=== PATIENT | female | born 1995 | race Caucasian/White ===

== ENCOUNTER 2018-05-27 01:49 | Inpatient (IN) ==
[2018-05-27] MEDS ORDERED: Ipratropium/Albuterol Neb 3 ML IH ONE ×2 (01:53→06:28)
[2018-05-27] MEDS ORDERED: Isovue-370 500 ML INFUS..BTL IV ONE (01:54)
--- NOTE | 2018-05-27 01:59 | Emergency Department Note ---
Disposition Clinical Impression: Acute septic pulmonary embolus Qualifiers: Acute cor pulmonale presence: without acute cor pulmonale Qualified Code(s): I26.90 - Septic pulmonary embolism without acute cor pulmonale Aspiration pneumonia Qualifiers: Aspiration pneumonia type: unspecified Laterality: bilateral Lung location: unspecified part of lung Qualified Code(s): J69.0 - Pneumonitis due to inhalation of food and vomit Anaphylaxis Qualifiers: Encounter type: initial encounter Qualified Code(s): T78.2XXA - Anaphylactic shock, unspecified, initial encounter Disposition: Admitted As Inpatient Condition: Serious Time of Disposition: 05:48 General Adult HPI - General Chief complaint: ED Shortness of Breath/Dyspnea Stated complaint: MAO Time Seen by Provider: 05/27/18 01:53 Nursing Notes Reviewed: Yes Vital Signs Reviewed: Yes - History of Present Illness HPI Narrative: Female patient presenting to emergency complaining of shortness of breath. She was found be hypoxic in triage. She was brought back to the trauma room. The patient is tachypneic on exam. She is placed on oxygen. This brought her oxygen saturation up to 99 200%. She denies any fevers or chills. She does report shortness of breath and left-sided chest pain. She does have a history of IV drug use. She recently shot up yesterday. States that she abuses opiates. She does have track wheeler to her bilateral before meals areas. There is ecchymosis to them. They do not appear to be grossly infected at this time. The patient's lung sounds are not course. She has some scant expiratory wheezing. She has full variation.. She does not appear hypoxic clinically. She appears to be perfusing well. Abdomen is soft nontender. Patient has strong pulses in all 4 extremities. We will get a CTA of patient's chest and a basic lab workup. We will also provide the patient with a DuoNeb at this time. She denies any medical history or any breathing troubles previously. She states this happened one other time approximately a week ago it lasted for an hour and resolved. - Related Data Allergies Allergy/AdvReac Type Severity Reaction Status Date / Time No Known Allergies Allergy Verified 05/27/18 01:50 All systems ED: reviewed and negative except as stated. Review of Systems: As Per HPI Constitutional: Denies: fever, chills ENT ED: Denies: congestion Cardiovascular: Denies: chest pain, palpitations, syncope Respiratory: Reports: cough, dyspnea Gastrointestinal: Denies: abdominal pain, nausea, vomiting, diarrhea Genitourinary: Denies: urgency, dysuria, frequency, hematuria Musculoskeletal: Denies: back pain, neck pain Integumentary: Denies: lesions Past Medical History - Past Medical History Attestation: Yes The following information was validated with the patient. Source: patient Physical Exam - General Limitations: other (Appears to be in respiratory distress) General appearance: alert, in distress (Respiratory) - Head Head exam: atraumatic, normocephalic, normal inspection - Eye Eye exam: Present: normal appearance, PERRL, EOMI - ENT ENT exam: normal exam, normal oropharynx, mucous membranes moist - Neck Neck exam: Present: normal inspection, full ROM, trachea midline - Chest Chest inspection: Present: normal inspection, symmetric chest wall rise - Respiratory Respiratory exam: Present: respiratory distress, accessory muscle use, other ( Scant wheezing. No rhonchi. Patient's tripoding. Using accessory muscles.) - Cardiovascular Cardiovascular exam: Present: normal rhythm, tachycardia - Abdominal Exam Abdominal exam: Present: soft, Non-Tender. Absent: tenderness, distention, guarding, rebound, rigidity - Extremities Exam Extremities exam: Present: normal inspection, full ROM, normal capillary refill. Absent: tenderness, pedal edema - Back Exam Back exam: Present: normal inspection, full ROM. Absent: tenderness - Neurological Exam Neurological exam: Present: alert, oriented X3 - Psychiatric Psychiatric exam: Present: normal affect, normal mood - Skin Skin exam: Present: warm, dry, intact, normal color, other (Track wheeler to the bilateral ACs and forearms as well as left brachial area) Course Course Narrative: CTA of patient's chest is concerning for possible septic emboli. We have started the patient on vancomycin and Zosyn. We will admit to the hospital for further evaluation. Patient is not febrile. Has been doing well on 2 L of oxygen. Oxygen saturation is been satting in the high 90s to 100%. Some appear to be in any distress. Vital Signs Temperature 98.3 F 05/27/18 01:51 Pulse Rate 121 05/27/18 01:51 Respiratory Rate 25 05/27/18 01:51 Blood Pressure 119/75 05/27/18 01:51 O2 Sat by Pulse Oximetry 77 08/29/18 01:51 Temperature 98.3 F 05/27/18 01:51 Pulse Rate 109 05/27/18 07:05 Respiratory Rate 30 05/27/18 07:05 Blood Pressure 122/77 05/27/18 07:05 O2 Sat by Pulse Oximetry 100 05/27/18 07:05 Oxygen Delivery Oxygen Delivery Nasal Cannula Medical Decision Making - Medical Records Medical records reviewed: Yes I reviewed the patient's medical records. - Lab Data Lab results reviewed: Yes I reviewed the patient's lab results. Result diagrams: 05/27/18 02:04 05/27/18 02:04 Lab Results 05/27/18 05/27/18 05/27/18 Range/Units 02:04 02:04 02:04 WBC 12.3 H (4.3-11.1) K/mcL RBC 5.26 H (3.82-4.97) M/mcL Hgb 15.5 H (11.5-15.4) g/dL Hct 47.0 H (35.3-44.9) % MCV 89.4 (83.0-100.0) fL MCH 29.5 (28.0-33.3) pg MCHC 33.0 (31.6-35.5) g/dL RDW 12.8 (11.5-14.5) % Plt Count 342 (140-400) K/mcL MPV 10.6 (9.4-12.4) fL Immature Gran % 0.4 (0-4) % Seg Neutrophils % 55.4 % Lymphocytes % 28.0 % Monocytes % 6.4 % Eosinophils % 9.5 % Basophils % 0.3 % Neutrophils # 6.8 (1.6-8.9) K/mcL Lymphocytes # 3.5 (0.6-4.6) K/mcL Monocytes # 0.8 (0.0-1.3) K/mcL Eosinophils # 1.2 H (0.0-0.6) K/mcL Basophils # 0.0 (0.0-0.2) K/mcL Sodium 139 (136-145) mEq/L Potassium 4.1 (3.5-5.1) mEq/L Chloride 104 (98-107) mEq/L Carbon Dioxide 29 (23-29) mEq/L BUN 11 (6-20) mg/dL Creatinine 0.89 (0.60-1.20) mg/dL Est GFR ( Amer) > 60 (> 60) Est GFR (Non-Af Amer) > 60 (> 60) BUN/Creatinine Ratio 12 (6-26) Glucose 104 (70-105) mg/dL Calculated Osmolality 288 (280-300) Lactic Acid 1.1 (0.5-2.2) mmol/L Calcium 9.4 (8.6-10.3) mg/dL Troponin I < 0.03 (< 0.04) ng/mL Urine Color (Yellow) Urine Clarity (Clear) Urine pH (5.0-8.0) pH Units Ur Specific [place] (1.010-1.025) Urine Protein (Neg-Trace) mg/dL Urine Glucose (UA) (Normal) mg/dL Urine Ketones (Negative) mg/dL Urine Blood (Negative) Urine Nitrite (Negative) Urine Bilirubin (Negative) Urine Urobilinogen (Normal) mg/dL Ur Leukocyte Esterase (Negative) Ur Culture Indicated? (NO) Urine Test (Negative) 05/27/18 05/27/18 Range/Units 05:29 05:29 WBC (4.3-11.1) K/mcL RBC (3.82-4.97) M/mcL Hgb (11.5-15.4) g/dL Hct (35.3-44.9) % MCV (83.0-100.0) fL MCH (28.0-33.3) pg MCHC (31.6-35.5) g/dL RDW (11.5-14.5) % Plt Count (140-400) K/mcL MPV (9.4-12.4) fL Immature Gran % (0-4) % Seg Neutrophils % % Lymphocytes % % Monocytes % % Eosinophils % % Basophils % % Neutrophils # (1.6-8.9) K/mcL Lymphocytes # (0.6-4.6) K/mcL Monocytes # (0.0-1.3) K/mcL Eosinophils # (0.0-0.6) K/mcL Basophils # (0.0-0.2) K/mcL Sodium (136-145) mEq/L Potassium (3.5-5.1) mEq/L Chloride (98-107) mEq/L Carbon Dioxide (23-29) mEq/L BUN (6-20) mg/dL Creatinine (0.60-1.20) mg/dL Est GFR ( Amer) (> 60) Est GFR (Non-Af Amer) (> 60) BUN/Creatinine Ratio (6-26) Glucose (70-105) mg/dL Calculated Osmolality (280-300) Lactic Acid (0.5-2.2) mmol/L Calcium (8.6-10.3) mg/dL Troponin I (< 0.04) ng/mL Urine Color Yellow (Yellow) Urine Clarity Clear (Clear) Urine pH 6.5 (5.0-8.0) pH Units Ur Specific [place] > 1.030 H (1.010-1.025) Urine Protein Negative (Neg-Trace) mg/dL Urine Glucose (UA) Normal (Normal) mg/dL Urine Ketones Negative (Negative) mg/dL Urine Blood Negative (Negative) Urine Nitrite Negative (Negative) Urine Bilirubin Negative (Negative) Urine Urobilinogen Normal (Normal) mg/dL Ur Leukocyte Esterase Negative (Negative) Ur Culture Indicated? NO (NO) Urine Test Negative (Negative) - Radiology Data Radiology results reviewed: Yes I reviewed the patient's radiology results. Chest CTA 05/27/18 01:55 IMPRESSION: Negative for acute pulmonary embolism. Diffuse airway inflammation which tracheobronchial secretions and multifocal ground-glass/consolidative opacities. Differential considerations would include aspiration sequela and septic embolic disease given patient's history of IV drug abuse. Although pulmonary infarcts can have a similar appearance, this is less favored. Right hilar lymphadenopathy, presumably reactive. Critical results were called by Dr. Gonzalo James to Melissa Salcedo on 05/27/2018 at 03:46. D/ / Gonzalo James / Gonzalo James Interpreting Provider: Gonzalo James
[2018-05-27] MEDS: 0.9 % Sodium Chloride 1,000 ML IVC ONE ×2 (02:06→06:42)
[2018-05-27 02:37] LABS: Basophils % 0.3 %; Eosinophils # 1.2 K/mcL (0.0-0.6); Eosinophils % 9.5 %; Hemoglobin 15.5 g/dL (11.5-15.4); Immature Granulocytes % 0.4 % (0-4); Lymphocytes # 3.5 K/mcL (0.6-4.6); Mean Corpuscular Hemoglobin 29.5 pg (28.0-33.3); Mean Corpuscular Volume 89.4 fL (83.0-100.0); Mean Platelet Volume 10.6 fL (9.4-12.4); Monocytes # 0.8 K/mcL (0.0-1.3); Monocytes % 6.4 %; Neutrophils # 6.8 K/mcL (1.6-8.9); Platelet Count 342 K/mcL (140-400); Red Blood Count 5.26 M/mcL (3.82-4.97); Red Cell Distribution Width 12.8 % (11.5-14.5); Segmented Neutrophils % 55.4 %
[2018-05-27 02:56] LABS: BUN/Creatinine Ratio 12 (6-26); Blood Urea Nitrogen 11 mg/dL (6-20); Calcium 9.4 mg/dL (8.6-10.3); Carbon Dioxide 29 mEq/L (23-29); Chloride 104 mEq/L (98-107); Glucose 104 mg/dL (70-105); Osmolality,Calculated 288 (280-300); Potassium 4.1 mEq/L (3.5-5.1); Sodium 139 mEq/L (136-145); Troponin I < 0.03 ng/mL (< 0.04); eGFR For Non-African Americans > 60 (> 60)
[2018-05-27] MEDS ORDERED: Piperacillin/Tazobactam 3.375 GM in Water for inj. (sterile) 20 ML 20 ML IVP ONE (04:17)
[2018-05-27 05:44] LABS: Bilirubin,Urine Negative (Negative); Blood,Urine Negative (Negative); Clarity,Urine Clear (Clear); Color,Urine Yellow (Yellow); Glucose,Urine (UA) Normal (Normal); Ketones,Urine Negative (Negative); Leukocyte Esterase,Urine Negative (Negative); Nitrite,Urine Negative (Negative); PH,Urine 6.5 pH Units (5.0-8.0); Protein,Urine Negative (Neg-Trace); Specific Gravity,Urine > 1.030 (1.010-1.025); Urobilinogen,Urine Normal (Normal)
[2018-05-27] MEDS ORDERED: *HR* EPINEPHrine 1 MG/10 ML SYRINGE ONE (06:07)
[2018-05-27] MEDS: *HR* EPINEPHrine 1 MG/ML AMPUL IM ONE ×2 (06:08→06:15)
[2018-05-27] MEDS ORDERED: methylPREDNISolone 125 MG/2 ML VIAL ONE (06:10)
[2018-05-27] MEDS ORDERED: *HR* EPINEPHrine 1 MG/ML AMPUL ONE ×2 (06:10→06:13)
[2018-05-27] MEDS ORDERED: Ipratropium/Albuterol Neb 3 ML ONE (06:10)
--- NOTE | 2018-05-27 06:17 | Emergency Department Note ---
Disposition Clinical Impression: Acute septic pulmonary embolus Qualifiers: Acute cor pulmonale presence: without acute cor pulmonale Qualified Code(s): I26.90 - Septic pulmonary embolism without acute cor pulmonale Aspiration pneumonia Qualifiers: Aspiration pneumonia type: unspecified Laterality: bilateral Lung location: unspecified part of lung Qualified Code(s): J69.0 - Pneumonitis due to inhalation of food and vomit Anaphylaxis Qualifiers: Encounter type: initial encounter Qualified Code(s): T78.2XXA - Anaphylactic shock, unspecified, initial encounter Disposition: Admitted As Inpatient Condition: Serious General Adult HPI - General Chief complaint: ED Shortness of Breath/Dyspnea Stated complaint: MAO Time Seen by Provider: 05/27/18 01:53 Source: patient Limitations: other (Appears to be in respiratory distress) Nursing Notes Reviewed: Yes Vital Signs Reviewed: Yes - History of Present Illness Pain Scale: 5 - Related Data Allergies Allergy/AdvReac Type Severity Reaction Status Date / Time No Known Allergies Allergy Verified 05/27/18 01:50 Constitutional: Denies: fever, chills ENT ED: Denies: congestion Cardiovascular: Denies: chest pain, palpitations, syncope Respiratory: Reports: cough, dyspnea Gastrointestinal: Denies: abdominal pain, nausea, vomiting, diarrhea Genitourinary: Denies: urgency, dysuria, frequency, hematuria Musculoskeletal: Denies: back pain, neck pain Integumentary: Denies: lesions Past Medical History - Past Medical History Medical history: Reports: no medical history Psychiatric history: Reports: no psych history - Social History Smoking Status: Current every day smoker Smokeless Tobacco Status: No Alcohol use: Reports: none Drug use: Reports: IV Drug Use Physical Exam - General Limitations: other (Appears to be in respiratory distress) General appearance: alert, in distress (Respiratory) Course Vital Signs Temperature 98.3 F 05/27/18 01:51 Pulse Rate 121 05/27/18 01:51 Respiratory Rate 25 05/27/18 01:51 Blood Pressure 119/75 05/27/18 01:51 O2 Sat by Pulse Oximetry 77 05/27/18 01:51 Temperature 98.3 F 05/27/18 01:51 Pulse Rate 109 05/27/18 07:05 Respiratory Rate 30 05/27/18 07:05 Blood Pressure 122/77 05/27/18 07:05 O2 Sat by Pulse Oximetry 100 05/27/18 07:05 Oxygen Delivery Oxygen Delivery Nasal Cannula Medical Decision Making - Lab Data Lab results reviewed: Yes I reviewed the patient's lab results. Result diagrams: 05/27/18 02:04 05/27/18 02:04 Lab Results 05/27/18 05/27/18 05/27/18 Range/Units 02:04 02:04 02:04 WBC 12.3 H (4.3-11.1) K/mcL RBC 5.26 H (3.82-4.97) M/mcL Hgb 15.5 H (11.5-15.4) g/dL Hct 47.0 H (35.3-44.9) % MCV 89.4 (83.0-100.0) fL MCH 29.5 (28.0-33.3) pg MCHC 33.0 (31.6-35.5) g/dL RDW 12.8 (11.5-14.5) % Plt Count 342 (140-400) K/mcL MPV 10.6 (9.4-12.4) fL Immature Gran % 0.4 (0-4) % Seg Neutrophils % 55.4 % Lymphocytes % 28.0 % Monocytes % 6.4 % Eosinophils % 9.5 % Basophils % 0.3 % Neutrophils # 6.8 (1.6-8.9) K/mcL Lymphocytes # 3.5 (0.6-4.6) K/mcL Monocytes # 0.8 (0.0-1.3) K/mcL Eosinophils # 1.2 H (0.0-0.6) K/mcL Basophils # 0.0 (0.0-0.2) K/mcL Sodium 139 (136-145) mEq/L Potassium 4.1 (3.5-5.1) mEq/L Chloride 104 (98-107) mEq/L Carbon Dioxide 29 (23-29) mEq/L BUN 11 (6-20) mg/dL Creatinine 0.89 (0.60-1.20) mg/dL Est GFR ( Amer) > 60 (> 60) Est GFR (Non-Af Amer) > 60 (> 60) BUN/Creatinine Ratio 12 (6-26) Glucose 104 (70-105) mg/dL Calculated Osmolality 288 (280-300) Lactic Acid 1.1 (0.5-2.2) mmol/L Calcium 9.4 (8.6-10.3) mg/dL Troponin I < 0.03 (< 0.04) ng/mL Urine Color (Yellow) Urine Clarity (Clear) Urine pH (5.0-8.0) pH Units Ur Specific [place] (1.010-1.025) Urine Protein (Neg-Trace) mg/dL Urine Glucose (UA) (Normal) mg/dL Urine Ketones (Negative) mg/dL Urine Blood (Negative) Urine Nitrite (Negative) Urine Bilirubin (Negative) Urine Urobilinogen (Normal) mg/dL Ur Leukocyte Esterase (Negative) Ur Culture Indicated? (NO) Urine Test (Negative) 05/27/18 05/27/18 Range/Units 05:29 05:29 WBC (4.3-11.1) K/mcL RBC (3.82-4.97) M/mcL Hgb (11.5-15.4) g/dL Hct (35.3-44.9) % MCV (83.0-100.0) fL MCH (28.0-33.3) pg MCHC (31.6-35.5) g/dL RDW (11.5-14.5) % Plt Count (140-400) K/mcL MPV (9.4-12.4) fL Immature Gran % (0-4) % Seg Neutrophils % % Lymphocytes % % Monocytes % % Eosinophils % % Basophils % % Neutrophils # (1.6-8.9) K/mcL Lymphocytes # (0.6-4.6) K/mcL Monocytes # (0.0-1.3) K/mcL Eosinophils # (0.0-0.6) K/mcL Basophils # (0.0-0.2) K/mcL Sodium (136-145) mEq/L Potassium (3.5-5.1) mEq/L Chloride (98-107) mEq/L Carbon Dioxide (23-29) mEq/L BUN (6-20) mg/dL Creatinine (0.60-1.20) mg/dL Est GFR ( Amer) (> 60) Est GFR (Non-Af Amer) (> 60) BUN/Creatinine Ratio (6-26) Glucose (70-105) mg/dL Calculated Osmolality (280-300) Lactic Acid (0.5-2.2) mmol/L Calcium (8.6-10.3) mg/dL Troponin I (< 0.04) ng/mL Urine Color Yellow (Yellow) Urine Clarity Clear (Clear) Urine pH 6.5 (5.0-8.0) pH Units Ur Specific [place] > 1.030 H (1.010-1.025) Urine Protein Negative (Neg-Trace) mg/dL Urine Glucose (UA) Normal (Normal) mg/dL Urine Ketones Negative (Negative) mg/dL Urine Blood Negative (Negative) Urine Nitrite Negative (Negative) Urine Bilirubin Negative (Negative) Urine Urobilinogen Normal (Normal) mg/dL Ur Leukocyte Esterase Negative (Negative) Ur Culture Indicated? NO (NO) Urine Test Negative (Negative) - Radiology Data Radiology results reviewed: Yes I reviewed the patient's radiology results. Chest CTA 05/27/18 01:55 IMPRESSION: Negative for acute pulmonary embolism. Diffuse airway inflammation which tracheobronchial secretions and multifocal ground-glass/consolidative opacities. Differential considerations would include aspiration sequela and septic embolic disease given patient's history of IV drug abuse. Although pulmonary infarcts can have a similar appearance, this is less favored. Right hilar lymphadenopathy, presumably reactive. Critical results were called by Dr. Gonzalo James to Melissa Salcedo on 05/27/2018 at 03:46. D/ / Gonzalo James / Gonzalo James Interpreting Provider: Gonzalo James - EKG Data EKG #1 EKG attestation: Yes I reviewed and interpreted this EKG. EKG results narrative: EKG shows a sinus tachycardia with ventricular rate of 105. No acute ST segment elevation or depression. No ectopy. Critical Care Time Critical Care Time: Yes Total Critical Care Time: 90 Attestation: Critical care performed: Time is exclusive of separately billable procedures. Time includes: direct patient care, patient reassessment, coordination of patient care, interpretation of data (laboratory data, radiology data, and respiratory data), review of patient's medical records, medical consultation and documentation of patient care. Procedures included in critical care time: Procedures excluded from critical care time: Attestation Statement - Attestation Attestation: I, Jair Edwards MD, personally evaluated this patient and discussed their management with the resident physician. I reviewed the resident's note and agree with the documented findings, medical decision making, and plan of care. 23-year-old female presented to the emergency department with a complaint of shortness of breath which started yesterday morning when she woke up and has gotten progressively worse throughout the day. Patient states she had a similar episode several days ago which lasted about an hour and resolved. She denies any chest pain. No cough or fever. No history of asthma or breathing problems. Patient does admit to IV drug use. On examination patient is a well-developed well-nourished young female in moderate respiratory distress. O2 saturation on presentation was 76% on room air. Breath sounds are decreased bilaterally with just a few faint scattered expiratory wheezes. Heart regular with a mild tachycardia. Abdomen soft and nontender with present bowel sounds. Labs reviewed. CTA consistent with early septic pulmonary emboli. Blood cultures obtained. IV antibiotics initiated. The hospitalist, Dr. Mendez, was consulted and accepted admission of the patient. Patient received IV Zosyn and then was started on IV vancomycin. After the vancomycin had been running for about an hour patient developed an anaphylactic reaction. She became short of breath with wheezing and itching and diffuse urticaria. She became pale and diaphoretic. She maintained her blood pressure and initially her oxygen saturation however she then did drop down to 84%. She was placed on nonrebreather mask. She received IM epinephrine 2 doses. IV Solu-Medrol, Pepcid, and Benadryl. She also received additional DuoNeb treatments. She was then placed on an epinephrine drip. She did have gradual improvement in her symptoms. Her color improved and mentation improved. Wheezing did improve but persisted. At shift change patient is signed out to Dr. Ray and Dr. Saenz. She has been ICU bed and will need a central line placement for the epinephrine drip prior to going to ICU.
[2018-05-27] MEDS ORDERED: 0.9 % Sodium Chloride 1,000 ML ONE ×2 (06:18→07:59)
[2018-05-27] MEDS ORDERED: methylPREDNISolone 125 MG/2 ML VIAL IVP ONE (06:25)
[2018-05-27] MEDS ORDERED: *HR* EPINEPHrine 1 MG/ML AMPUL IM ONE (06:28)
[2018-05-27] MEDS ORDERED: Famotidine 20 MG/2 ML VIAL IVP ONE (06:28)
[2018-05-27] MEDS ORDERED: EPINEPHrine 1 MG in D5% in Water 250 ML IVC SCH (06:30)
--- NOTE | 2018-05-27 07:55 | Emergency Department Note ---
Disposition Clinical Impression: Acute septic pulmonary embolus Qualifiers: Acute cor pulmonale presence: without acute cor pulmonale Qualified Code(s): I26.90 - Septic pulmonary embolism without acute cor pulmonale Aspiration pneumonia Qualifiers: Aspiration pneumonia type: unspecified Laterality: bilateral Lung location: unspecified part of lung Qualified Code(s): J69.0 - Pneumonitis due to inhalation of food and vomit Anaphylaxis Qualifiers: Encounter type: initial encounter Qualified Code(s): T78.2XXA - Anaphylactic shock, unspecified, initial encounter Disposition: Admitted As Inpatient Condition: Serious General Adult HPI - General Chief complaint: ED Shortness of Breath/Dyspnea Stated complaint: MAO Time Seen by Provider: 05/27/18 01:53 Source: patient Limitations: other (Appears to be in respiratory distress) Nursing Notes Reviewed: Yes Vital Signs Reviewed: Yes - History of Present Illness Pain Scale: 5 - Related Data Home Medications Medication Instructions Recorded Confirmed Unable To Obtain [Unable to Obtain] 05/27/18 05/27/18 Allergies Allergy/AdvReac Type Severity Reaction Status Date / Time No Known Allergies Allergy Verified 05/27/18 01:50 Constitutional: Denies: fever, chills ENT ED: Denies: congestion Cardiovascular: Denies: chest pain, palpitations, syncope Respiratory: Reports: cough, dyspnea Gastrointestinal: Denies: abdominal pain, nausea, vomiting, diarrhea Genitourinary: Denies: urgency, dysuria, frequency, hematuria Musculoskeletal: Denies: back pain, neck pain Integumentary: Denies: lesions Past Medical History - Past Medical History Medical history: Reports: no medical history Psychiatric history: Reports: no psych history - Social History Smoking Status: Current every day smoker Smokeless Tobacco Status: No Alcohol use: Reports: none Drug use: Reports: IV Drug Use Physical Exam - General Limitations: other (Appears to be in respiratory distress) General appearance: alert, in distress (Respiratory) Course Course Narrative: Patient was given in sign out by the night team. Upon my arrival patient was in the middle transitioning rooms due to undergoing respiratory distress secondary to reaction to vancomycin. In sign out stated that the patient has a history of IV drug use she has been having shortness of breath over the past 3 days she came into the emergency department for evaluation she is noted to have an oxygen saturation in the 70s. She started on 4 L nasal cannula which improved her symptoms she had a CTA of the chest done which was concerning for pneumonia versus granulomatous disease versus bronchitis versus septic emboli. She was started on IV vancomycin and Zosyn and blood cultures were obtained. Her lab work was unremarkable. Due to her respiratory distress, wheezing, hives and diffuse itching after receiving the vancomycin patient was moved to the trauma room where intubation and central line placement was considered due to the patient's declining respiratory status. However, after receiving a total of 1 mg of epi IM, Solu-Medrol, Benadryl and being placed on an epinephrine drip the patient's symptoms began to improve. She is now with oxygen saturation at 100% on room air. Her blood pressure remained stable at this time. The patient mentate's well. Plan is to take her off the epi drip and she will be admitted to the stepdown unit. She will be started on an alternate antibiotic. Vital Signs Temperature 98.3 F 05/27/18 01:51 Pulse Rate 121 05/27/18 01:51 Respiratory Rate 25 05/27/18 01:51 Blood Pressure 119/75 05/27/18 01:51 O2 Sat by Pulse Oximetry 77 05/27/18 01:51 Temperature 97.9 F 05/27/18 08:40 Pulse Rate 85 05/27/18 08:40 Respiratory Rate 22 05/27/18 08:48 Blood Pressure 118/71 05/27/18 08:48 O2 Sat by Pulse Oximetry 97 05/27/18 08:40 Oxygen Delivery Oxygen Delivery Nasal Cannula Medical Decision Making - Medical Records Medical records reviewed: Yes I reviewed the patient's medical records. - Lab Data Lab results reviewed: Yes I reviewed the patient's lab results. Result diagrams: 05/27/18 02:04 05/27/18 02:04 Lab Results 05/27/18 05/27/18 05/27/18 Range/Units 02:04 02:04 02:04 WBC 12.3 H (4.3-11.1) K/mcL RBC 5.26 H (3.82-4.97) M/mcL Hgb 15.5 H (11.5-15.4) g/dL Hct 47.0 H (35.3-44.9) % MCV 89.4 (83.0-100.0) fL MCH 29.5 (28.0-33.3) pg MCHC 33.0 (31.6-35.5) g/dL RDW 12.8 (11.5-14.5) % Plt Count 342 (140-400) K/mcL MPV 10.6 (9.4-12.4) fL Immature Gran % 0.4 (0-4) % Seg Neutrophils % 55.4 % Lymphocytes % 28.0 % Monocytes % 6.4 % Eosinophils % 9.5 % Basophils % 0.3 % Neutrophils # 6.8 (1.6-8.9) K/mcL Lymphocytes # 3.5 (0.6-4.6) K/mcL Monocytes # 0.8 (0.0-1.3) K/mcL Eosinophils # 1.2 H (0.0-0.6) K/mcL Basophils # 0.0 (0.0-0.2) K/mcL Sodium 139 (136-145) mEq/L Potassium 4.1 (3.5-5.1) mEq/L Chloride 104 (98-107) mEq/L Carbon Dioxide 29 (23-29) mEq/L BUN 11 (6-20) mg/dL Creatinine 0.89 (0.60-1.20) mg/dL Est GFR ( Amer) > 60 (> 60) Est GFR (Non-Af Amer) > 60 (> 60) BUN/Creatinine Ratio 12 (6-26) Glucose 104 (70-105) mg/dL POC Glucose (70-99) mg/dL Calculated Osmolality 288 (280-300) Lactic Acid 1.1 (0.5-2.2) mmol/L Calcium 9.4 (8.6-10.3) mg/dL Troponin I < 0.03 (< 0.04) ng/mL Urine Color (Yellow) Urine Clarity (Clear) Urine pH (5.0-8.0) pH Units Ur Specific [place] (1.010-1.025) Urine Protein (Neg-Trace) mg/dL Urine Glucose (UA) (Normal) mg/dL Urine Ketones (Negative) mg/dL Urine Blood (Negative) Urine Nitrite (Negative) Urine Bilirubin (Negative) Urine Urobilinogen (Normal) mg/dL Ur Leukocyte Esterase (Negative) Ur Culture Indicated? (NO) Urine Test (Negative) 05/27/18 05/27/18 05/27/18 Range/Units 05:29 05:29 08:50 WBC (4.3-11.1) K/mcL RBC (3.82-4.97) M/mcL Hgb (11.5-15.4) g/dL Hct (35.3-44.9) % MCV (83.0-100.0) fL MCH (28.0-33.3) pg MCHC (31.6-35.5) g/dL RDW (11.5-14.5) % Plt Count (140-400) K/mcL MPV (9.4-12.4) fL Immature Gran % (0-4) % Seg Neutrophils % % Lymphocytes % % Monocytes % % Eosinophils % % Basophils % % Neutrophils # (1.6-8.9) K/mcL Lymphocytes # (0.6-4.6) K/mcL Monocytes # (0.0-1.3) K/mcL Eosinophils # (0.0-0.6) K/mcL Basophils # (0.0-0.2) K/mcL Sodium (136-145) mEq/L Potassium (3.5-5.1) mEq/L Chloride (98-107) mEq/L Carbon Dioxide (23-29) mEq/L BUN (6-20) mg/dL Creatinine (0.60-1.20) mg/dL Est GFR ( Amer) (> 60) Est GFR (Non-Af Amer) (> 60) BUN/Creatinine Ratio (6-26) Glucose (70-105) mg/dL POC Glucose 180 H (70-99) mg/dL Calculated Osmolality (280-300) Lactic Acid (0.5-2.2) mmol/L Calcium (8.6-10.3) mg/dL Troponin I (< 0.04) ng/mL Urine Color Yellow (Yellow) Urine Clarity Clear (Clear) Urine pH 6.5 (5.0-8.0) pH Units Ur Specific [place] > 1.030 H (1.010-1.025) Urine Protein Negative (Neg-Trace) mg/dL Urine Glucose (UA) Normal (Normal) mg/dL Urine Ketones Negative (Negative) mg/dL Urine Blood Negative (Negative) Urine Nitrite Negative (Negative) Urine Bilirubin Negative (Negative) Urine Urobilinogen Normal (Normal) mg/dL Ur Leukocyte Esterase Negative (Negative) Ur Culture Indicated? NO (NO) Urine Test Negative (Negative) - Radiology Data Radiology results reviewed: Yes I reviewed the patient's radiology results. Chest CTA 05/27/18 01:55 IMPRESSION: Negative for acute pulmonary embolism. Diffuse airway inflammation which tracheobronchial secretions and multifocal ground-glass/consolidative opacities. Differential considerations would include aspiration sequela and septic embolic disease given patient's history of IV drug abuse. Although pulmonary infarcts can have a similar appearance, this is less favored. Right hilar lymphadenopathy, presumably reactive. Critical results were called by Dr. Gonzalo James to Melissa Salcedo on 05/27/2018 at 03:46. D/ / Gonzalo James / Gonzalo James Interpreting Provider: Gonzalo James S.B.A.R. - S.B.A.R. Transition of Care: Signed out to Dr. Ray and Dr. Saenz at 7:00. Situation: Demographics, MOA Background: Presenting Complaint, Relevant PMH, Meds, & Allergies Assessment: Vital Signs, Course and respsone to treatment, Exam Concerns, Patient/Family Expectation, Pertinant Lab Results Recommendation: Barrier(s) to disposition, Recommendation based on pending studies, treatments, or consults S.B.A.R. Report Given to: Dr. Saenz and Dr. Ray S.B.A.R. Repor Time: 07:00 Attestation Statement - Attestation Attestation: I, Juan Ray, examined this patient and my medical decision-making was reviewed with the DISPATCHER CHIEF [employer]URRY/PA/Advanced Practice Nurse/Resident Physician. I agree with the documented findings, disposition and treatment plan as described except to the extent set forth below. 23-year-old female received in sign out at and start of my shift pending reevaluation and disposition. Patient arrived emergency department short of breath and fatigued. She admitted to heroin and methamphetamine use over the past few days. Patient had difficulty in breathing and was diagnosed with likely septic emboli and started on antibiotics. She had received Zosyn without difficulty. She was then receiving vancomycin and about 40 minutes into her treatment she developed what apparently appeared to be urticaria, she had severe wheezing. They gave her epinephrine and Solu-Medrol in the emergency department. She was ultimately started on an epinephrine drip with eventual improvement of her symptoms. Upon my reevaluation she was mildly tachycardic however she did not have difficulty breathing. The epinephrine drip was removed and patient remained stable. She was admitted to the stepdown unit for further care and evaluation.
[2018-05-27] MEDS ORDERED: 0.9 % Sodium Chloride 1,000 ML IVC ONE (08:15)
[2018-05-27] MEDS ORDERED: Acetaminophen 325 MG TABLET PO PRN (09:16)
[2018-05-27] MEDS ORDERED: Naloxone 0.4 MG/ML INJ IVP PRN (09:16)
[2018-05-27] MEDS ORDERED: Albuterol 2.5 MG/3 ML NEBULIZER IH PRN (09:42)
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
--- NOTE | 2018-05-27 11:47 | Pulmonology Consult Note ---
<Moni Flores E - Last Filed: 05/27/18 14:19> Date of Encounter: 05/27/18 Time of Encounter: 11:45 Assessment and Plan (1) Pneumonia Current Visit: Yes Status: Acute CT angiogram showed no pulmonary embolism, showed bilateral multifocal opacities and tracheobronchial secretions, consistent with aspiration versus septic emboli. Supportive care Supplemental oxygen IV fluids Blood cultures have been sent IV Zosyn and linezolid Urine for Legionella and strep pneumonia antigen, MRSA nasal screen Qualifiers: Pneumonia type: due to unspecified organism Laterality: bilateral Lung location: unspecified part of lung Qualified Code(s): J18.9 - Pneumonia, unspecified organism (2) Septic embolism Current Visit: Yes Status: Acute History of IV drug abuse Follow-up blood cultures and check TTE Continue IV antibiotics (3) Sepsis Current Visit: Yes Status: Suspected Suspected due to pneumonia Plan as above Qualifiers: Sepsis type: sepsis due to unspecified organism Qualified Code(s): A41.9 - Sepsis, unspecified organism (4) Acute encephalopathy Current Visit: Yes Status: Acute Patient was told to be awaken in the ICU. She answered a few questions and fell back asleep. This was likely toxic/metabolic due to drug use, or sepsis. Monitor closely (5) IV drug abuse Current Visit: Yes Status: Chronic History of IV drug use with heroin Methamphetamine use Supportive care Closely monitor (6) Anaphylaxis Current Visit: Yes Status: Acute Continue to IV vancomycin in the ED was given IM epinephrine, IV Benadryl, Solu- Medrol improvement The supportive care with close monitoring Qualifiers: Encounter type: initial encounter Qualified Code(s): T78.2XXA - Anaphylactic shock, unspecified, initial encounter History of Present Illness Consult date: 05/27/18 Requesting physician: Louann Boone Chief complaint: Chest pain, dyspnea with Meth and IVDH, with B/L septic emboli on CT History of present illness: Ms. Prieto is a 23-year-old female with a history of IV drug abuse and methamphetamine use. She presented to the ED with complaints of shortness of breath. Yesterday she started developing shortness of breath that was worse on exertion. She had some mild chest pain radiated to her back. She denied any palpitations dizziness or syncope. She had a dry cough for the last few days. She did not notice any fevers, chills, vomiting, diarrhea, or abdominal pain. IV heroin last use was 1 week ago, methamphetamine yesterday. Is treated in the ED with vancomycin as a drug reaction with significant wheezing, lethargy, diffuse rash she received treatment with IV Benadryl. Exam patient was very drowsy easily awoken. Past Med Surg Social Fam HX - Past Medical History Medical history: no medical history Psychiatric history: no psych history - Past Surgical History Surgical History: no surgical history - Social History Smoking Status: Current every day smoker Packs per day: 1 Smokeless Tobacco Status: No Alcohol use: none Drug use: methamphetamine, IV Drug Use - Family History Mother Hx Family Cancer: Yes Medications and Allergies Unable To Obtain [Unable to Obtain] 05/27/18 [History] 3 Allergy/AdvReac Type Severity Reaction Status Date / Time No Known Allergies Allergy Verified 05/27/18 01:50 All Systems: The remainder of the systems were reviewed and are negative - Constitutional Constitutional: no chills, no fever(s), no headache(s) - Cardiovascular Cardiovascular: chest pain, radiating pain (To the back), no irregular heart rhythm - Respiratory Respiratory: cough, dyspnea, dyspnea on exertion - Gastrointestinal Gastrointestinal: no abdominal pain, no cramping, no diarrhea Physical Examination General appearance: no acute distress Eyes: nonicteric ENT: oropharynx moist Effort: normal Auscultation: bilateral: wheezes (Bilateral all lung lobes) Cardiovascular: regular rate and rhythm Gastrointestinal: normoactive bowel sounds, non-tender, non-distended Integumentary: other (And lines noticed on both arms the patient. She also has a brown patch on her right lower leg she has is scar) Extremities: no cyanosis, no edema, pink and warm mood appropriate Results - Laboratory Findings CBC and BMP: 05/27/18 02:04 05/27/18 02:04 Abnormal lab findings: Abnormal lab results WBC 12.3 K/mcL (4.3-11.1) H 05/27/18 02:04 RBC 5.26 M/mcL (3.82-4.97) H 05/27/18 02:04 Hgb 15.5 g/dL (11.5-15.4) H 05/27/18 02:04 Hct 47.0 % (35.3-44.9) H 05/27/18 02:04 Eosinophils # 1.2 K/mcL (0.0-0.6) H 05/27/18 02:04 POC Glucose 180 mg/dL (70-99) H 05/27/18 08:50 Ur Specific [place] > 1.030 (1.010-1.025) H 05/27/18 05:29 Consult Discharge Plan - Plan Referrals: NONE,PCP [Primary Care Provider] - Azam Henderson MD [Family Provider] - <Abilio Reynaga M - Last Filed: 05/27/18 17:16> Date of Encounter: 05/27/18 All Systems: The remainder of the systems were reviewed and are negative Results - Laboratory Findings CBC and BMP: 05/27/18 02:04 05/27/18 02:04 Abnormal lab findings: Abnormal lab results WBC 12.3 K/mcL (4.3-11.1) H 05/27/18 02:04 RBC 5.26 M/mcL (3.82-4.97) H 05/27/18 02:04 Hgb 15.5 g/dL (11.5-15.4) H 05/27/18 02:04 Hct 47.0 % (35.3-44.9) H 05/27/18 02:04 Eosinophils # 1.2 K/mcL (0.0-0.6) H 05/27/18 02:04 POC Glucose 180 mg/dL (70-99) H 05/27/18 08:50 Ur Specific [place] > 1.030 (1.010-1.025) H 05/27/18 05:29 - Microbiology Findings Microbiology Findings: Microbiology, Last 48 Hours 05/27/18 11:13 Blood Culture - Preliminary Peripheral Venipuncture Culture is incubating and being continuously monitored for growth. Final report to follow. 05/27/18 11:10 Blood Culture - Preliminary Peripheral Venipuncture Culture is incubating and being continuously monitored for growth. Final report to follow. - Attending Attestation I examined this patient and my medical decision-making was reviewed with the Resident Physician. I agree with the documented findings, disposition and treatment plan as described except to the extent set forth below. Patient seen and examined. Labs, radiology, chart personally reviewed. Agree with resident's history and physical, assessment, plan with following comments: [employer]: Patient follows commands, Pulmonary: Acceptable oxygenation and ventilation. Reviewed CT chest personally and she will be treated for pneumonia. Patient reaction to vancomycin and infectious disease consultation for further help. Cardiovascular: stable . Patient may need WENDIE to make sure there is no agitation. GI: Nutrition per dietary and GI prophylaxis per routine Heme: DVT prophylaxis per routine ID: Continue antibiotics and plan to de-escalation Renal; urine out put and renal funtion reviewed Endorcine: blood glucose is monitored Lines: all lines checked and no evidence of infections Skin: skin care to prevent pressure ulcers per nursing routine care Patient needs close monitoring after she had reaction to vancomycin.
[2018-05-27] MEDS: Ringers Solution, Lactated 1,000 ML IVC SCH ×2 (13:33→23:45)
--- NOTE | 2018-05-27 16:03 | Infectious Disease Consult ---
Date of Encounter: 05/27/18 Time of Encounter: 15:56 Assessment and Plan (1) Sepsis Status: Acute Assessment and plan: The patient had three SIRS criteria on admission. Likely secondary to multifocal pneumonia vs. septic emboli vs. other. Improved clinically. Blood cultures drawn 05/27/18 x 2 sets are pending. Qualifiers: Sepsis type: sepsis due to unspecified organism Qualified Code(s): A41.9 - Sepsis, unspecified organism (2) Pneumonia Status: Suspected Assessment and plan: Location: Multifocal. Causative organism unclear. Concern for aspiration based on CT scan findings, but the patient denies any loss of consciousness related to her IV drug use. CTA of the chest was negative for PE, but did show diffuse airway inflammation with tracheobronchial secretions and multifocal ground-glass opacities/ consolidative opacities. Differential considerations include aspiration vs. septic emboli vs. pulmonary infarcts (less likely). Check S. pneumo and Legionella UATs. Check MRSA nasal screen. Check RIP. Get an additional set of blood cultures now. Continue Zyvox 600mg IV BID for now. If MRSA screen is negative, discontinue. Continue Zosyn 3.375 grams IV Q8H. Duration of treatment depends on the clinical picture. Monitor renal function and for drug toxicity and dose-adjust antibiotics. Qualifiers: Pneumonia type: due to unspecified organism Laterality: bilateral Lung location: unspecified part of lung Qualified Code(s): J18.9 - Pneumonia, unspecified organism (3) Septic embolism Status: Suspected Assessment and plan: Suspected. Await blood culture results. Continue antibiotics as above. (4) Anaphylaxis Status: Acute Assessment and plan: Concern for reaction to Vancomycin. Appears resolved. Qualifiers: Encounter type: initial encounter Qualified Code(s): T78.2XXA - Anaphylactic shock, unspecified, initial encounter (5) IV drug abuse Status: Chronic Assessment and plan: Reports IV heroine use 1 week ago and IV meth use 2 days ago. Denies history of chronic infectious diseases. Check HIV status. Check Hepatitis profile. Infectious Disease HPI - Data of Consult Patient: new to practice Consult date: 05/27/18 Requesting Physician: Armando Mendez MD Primary Care Provider: PCP NONE Family Provider: Azam Henderson MD - Consult Narrative Reason for consult: Possible endocarditis, reaction to Vanc History of present illness: Ms. Prieto is a 23 year old female with past medical history of IV drug use. The patient was admitted to the hospital May 27 for anaphylaxis and septic emboli. We will consult in May 27 further recommendations for possible endocarditis and IV vancomycin reaction. Briefly, the patient is a 23-year-old female with past medical history as stated above. The patient presented to the emergency department on the day of admission with complaints of acute onset of shortness of breath and some left- sided chest pain. Upon arrival, the patient was afebrile. She was tachycardic and tachypneic and had leukocytosis with neutrophilic predominance. Her kidney function was normal. Urinalysis was negative. Troponin was negative 2. Blood cultures were obtained 2 sets and are pending. She was CTA of the chest that was negative for acute pulmonary embolism, but did show diffuse airway inflammation with tracheobronchial secretions and multifocal groundglass/ consolidative opacities. The differential considerations would include aspiration sequelae and septic emboli given the patient's history of IV drug use. Although pulmonary infarcts can have a similar period, this is less favored. There was also noted to be a right hilar lymphadenopathy, presumably reactive. The patient was started empirically on Zosyn and tolerated it well. She then received IV vancomycin and about an hour after the initiation of the infusion she developed worsening shortness of breath, rash, hives, urticaria, hypotension. She received Pepcid, Benadryl, sliding Medrol, and epinephrine and her symptoms improved. She was initially started on epinephrine drip, but that was discontinued. She was transitioned to IV Zosyn and Zyvox and admitted to the hospital for further evaluation. Since admission, the patient is undergone a transthoracic echocardiogram that showed an EF of 65%, but there is inadequate bowel visualization so a WENDIE was recommended if there was a clinical suspicion for endocarditis. Urinary antigen tests have been ordered but not collected. MRSA nasal screen has been ordered but not collected. Currently, the patient is on IV Zosyn and Zyvox. We have been asked to evaluate and make further recommendations. During my exam today, the patient endorses a history as stated above. She reports a one-day history of acute onset shortness of breath and some left- sided chest pain. She denies any known fevers or chills or rigors. She denies any headache or neck pain. She does report chronic nasal congestion and states she has been sneezing a lot lately. She denies any sore throat or ear pain. She denies a cough. She denies nausea or vomiting or diarrhea. She denies abdominal pain, urinary complaints, or appetite changes. She denies any oral thrush. She does report a chronic skin lesion to the right anterior lower leg of unknown etiology. She states she was seen at urgent care at the onset of her symptoms about 2 months ago, but was not given a definitive diagnosis. She reports chronic back pain that is intermittent and it is at baseline. She states that when she uses IV drugs she does not use them to the point where she looses consciousness. The patient lives at home with her boyfriend and a roommate. She states she has not had a period in about 5 weeks, but recently started the Depo-Provera shot. She had a urine test in the ER that was negative. She reports a history of IV heroin use about one week ago. She states she is IV methamphetamine the day before she became sick. She denies any known chronic infectious diseases. She denies any recent travel outside the [facility]. CC: Armando Mendez MD Past Med Surg Social Fam HX - Past Medical History Attestation: Yes The following information was validated with the patient. Source: patient, old records reviewed, nursing notes reviewed Medical history: no medical history Psychiatric history: no psych history - Past Surgical History Surgical History: no surgical history - Social History Smoking Status: Current every day smoker Packs per day: 1 Smokeless Tobacco Status: No Alcohol use: none Drug use: opiates, methamphetamine, IV Drug Use Occupational status: unemployed Current living situation: Home, With Family Activity Level: Independent ambulation Recent Out of Country Travel Within the Last 8 Weeks: No Exposure or Possible Exposure to Illness During Travel: No - Family History Mother Hx Family Cancer: Yes Infectious Disease-CN:Meds Unable To Obtain [Unable to Obtain] 05/27/18 [History] 3 Allergy/AdvReac Type Severity Reaction Status Date / Time vancomycin Allergy Anaphylaxis Verified 05/27/18 17:25 All systems: reviewed and no additional remarkable complaints except as stated Exam - Constitutional Vitals: Temp Pulse Resp BP Pulse Ox 97.9 F 71 15 106/80 99 05/27/18 08:40 05/27/18 12:00 05/27/18 12:00 05/27/18 12:00 05/27/18 12:00 General appearance: average body habitus, cooperative, no acute distress - Head Head exam: Present: atraumatic, normal inspection, normocephalic - Eye Eye exam: Present: EOMI, normal appearance, PERRL Pupils: Present: normal accommodation Additional comments: No subconjunctival hemorrhage noted. - ENT ENT exam: Present: mucous membranes moist - Neck Neck exam: Present: normal inspection - Respiratory Respiratory exam: Present: CTAB. Absent: rales, respiratory distress, rhonchi, wheezes - Cardiovascular Cardiovascular exam: Present: RRR, +S1, +S2 - GI/Abdominal GI/Abdominal exam: Present: normal bowel sounds, soft. Absent: distended, tenderness - Extremities Exam Extremities exam: Absent: normal inspection (Dark brown cutaneous lesion noted to the anterior aspect of the right lower bustamante. Some scabbing noted. No erythema, warmth, tenderness, or drainage noted.), pedal edema, tenderness - Back Exam Back exam: Present: normal inspection. Absent: paraspinal tenderness, vertebral tenderness - Neurological Exam Neurological exam: Present: alert, oriented X3, no focal deficits - Psychiatric Psychiatric exam: Present: normal affect, normal mood - Skin Skin exam: Present: dry, intact, normal color, warm. Absent: rash Additional comments: No endocarditis stigmata noted. Infectious Disease CN: Results - Labs CBC & Chem 7: 05/28/18 04:09 05/28/18 04:09 Cultures: Cultures 05/27/18 11:13 Blood Culture - Preliminary Peripheral Venipuncture Culture is incubating and being continuously monitored for growth. Final report to follow. 05/27/18 11:10 Blood Culture - Preliminary Peripheral Venipuncture Culture is incubating and being continuously monitored for growth. Final report to follow. Consult Discharge Plan - Plan Referrals: Graciela Goode [Resident] - 06/10/18 2:00 pm (Please show up to your appointment 30 minutes early to fill out paper work, take with you to your appointment Ins. Card, Picture ID, a list of all medications including over the counter meds. This office does not give out controlled meds. If you need to cancel please call [phone] 24 hours before your appointment.) - Attending Attestation I examined this patient and my medical decision-making was reviewed with the Resident Physician. I agree with the documented findings, disposition and treatment plan as described except to the extent set forth below. This is an addendum to original report dictated by Tanisha Bauman CNP. Please refer to Tanisha's note for full detail. Patient is a 23-year-old woman with history of IV drug use who came in with pneumonia that appears multifocal. Patient was started on broad-spectrum antibiotics and had anaphylaxis to vancomycin area patient was switched to Zosyn and Zyvox were asked to evaluate the patient's make further recommendations. On further review of the CT I did not appreciate any septic emboli. Patient does not have an active consolidation. It looks more like an atypical pneumonia if anything. I did review the CT scan with Dr. darling. We will get a MRSA screen, respiratory infectious panel, urine legionella and pneumococcal antigen. Continue broad-spectrum antibiotics for now and based on the culture results we will make further recommendations. Check HIV and hepatitis B and hepatitis C panel. Patient was almost and acyanotic AMA but then she agreed to stay.
[2018-05-27 17:49] LABS: Adenovirus Not Detected (Not Detect); Bordetella Pertussis Not Detected (Not Detect); Chlamydophila pneumoniae Not Detected (Not Detect); Coronavirus 229E Not Detected (Not Detect); Coronavirus HKU1 Not Detected (Not Detect); Coronavirus NL63 Not Detected (Not Detect); Coronavirus OC43 Not Detected (Not Detect); Human Metapneumovirus Not Detected (Not Detect); Human Rhinovirus/Enterovirus Not Detected (Not Detect); Influenza A Subtype 2009 H1 Not Detected (Not Detect); Influenza A Untypeable Not Detected (Not Detect); Influenza B Not Detected (Not Detect); Mycoplasma pneumoniae Not Detected (Not Detect); Parainfluenza Virus 1 Not Detected (Not Detect); Parainfluenza Virus 2 Not Detected (Not Detect); Parainfluenza Virus 3 Not Detected (Not Detect); Parainfluenza Virus 4 Not Detected (Not Detect); Respiratory Syncytial Virus Not Detected (Not Detect)
[2018-05-27] MEDS: Nicotine 21 MG PATCH.TD24 TD SCH (18:03)
[2018-05-27] MEDS: Piperacillin/Tazobactam 3.375 GM in 0.9 % Sodium Chloride Mini Bag 100 ML IVPB SCH (18:04)
[2018-05-27 23:29] LABS: HIV-1&2 Antibody & p24 Ag Nonreactive (Nonreactive); Hepatitis A Antibody IgM Nonreactive (Nonreactive); Hepatitis B Core IgM Nonreactive (Nonreactive); Hepatitis B Surface Antigen Nonreactive (Nonreactive); Hepatitis C Virus Antibody Nonreactive (Nonreactive)
[2018-05-28] MEDS ORDERED: Benzonatate 100 MG CAPSULE PO PRN (01:23)
[2018-05-28] MEDS: Piperacillin/Tazobactam 3.375 GM in 0.9 % Sodium Chloride Mini Bag 100 ML IVPB SCH ×2 (01:30→09:47)
[2018-05-28 04:42] LABS: Basophils % 0.2 %; Eosinophils # 0.1 K/mcL (0.0-0.6); Eosinophils % 0.7 %; Immature Granulocytes % 0.4 % (0-4); Lymphocytes # 3.9 K/mcL (0.6-4.6); Lymphocytes % 20.4 %; Mean Corpuscular HGB Conc 32.6 g/dL (31.6-35.5); Mean Corpuscular Hemoglobin 28.3 pg (28.0-33.3); Mean Corpuscular Volume 87.1 fL (83.0-100.0); Monocytes # 1.1 K/mcL (0.0-1.3); Monocytes % 5.9 %; Platelet Count 291 K/mcL (140-400); Red Blood Count 4.48 M/mcL (3.82-4.97); Red Cell Distribution Width 13.1 % (11.5-14.5); Segmented Neutrophils % 72.4 %
[2018-05-28 04:47] LABS: Hemoglobin 12.7 g/dL (11.5-15.4); Neutrophils # 13.8 K/mcL (1.6-8.9)
[2018-05-28 05:03] LABS: BUN/Creatinine Ratio 11 (6-26); Blood Urea Nitrogen 8 mg/dL (6-20); Calcium 8.8 mg/dL (8.6-10.3); Carbon Dioxide 22 mEq/L (23-29); Chloride 110 mEq/L (98-107); Glucose 84 mg/dL (70-105); Magnesium 1.9 mg/dL (1.6-2.6); Osmolality,Calculated 286 (280-300); Sodium 139 mEq/L (136-145); eGFR For Non-African Americans > 60 (> 60)
[2018-05-28] MEDS ORDERED: *HR* Enoxaparin 40 MG/0.4 ML SYRINGE SQ SCH (06:00)
--- NOTE | 2018-05-28 09:39 | Internal Med Progress Note ---
Hospitalist Progress Note - Encounter Date of Encounter: 05/28/18 Time of Encounter: 09:39 - Subjective Interval History: Patient seen and examined at bedside. Patient had no acute overnight events. Patient is alert today. Patient states that she uses heroin daily. Patient denies any chest pain admits to nonproductive cough, denies shortness of breath , denies nausea, vomiting, diarrhea. - Exam Vitals: Temp Pulse Resp BP Pulse Ox 98.0 F 69 16 121/83 98 05/28/18 07:10 05/28/18 07:10 05/28/18 07:10 05/28/18 07:10 05/28/18 07:10 Exam: Constitutional: No acute distress, Alert Psych: AAO x 3 HEENT: NCAT, EOMI Cardio: regular rate and rhythm, +s1s2, no murmurs/rubs/gallops, no JVD Resp: clear to ascultation bilaterally, no wheezes/rales/ronchi Abd: soft, non tender/non distended, positive bowel sounds, no gaurding/reboud/ ridgitity Extremities: no clubbing/cyanosis/edema appreciated, track wheeler on arms, no stigmata of endocarditis appreciated Neuro: no focal deficits appreciated - Assessment and Plan (1) Sepsis Current Visit: Yes Status: Acute Assessment and Plan: 2/2 Pneumonia with possible septic emboli -continue empric zyvox/zosyn -ID following -cx negative to date (2) Pneumonia Current Visit: Yes Status: Suspected Assessment and Plan: presented with dyspnea, has mild leukocytosis and tachycardia; presentation could be due to sepsis or amphetamine use. CT angiogram of chest showed no pulmonary embolism, showed bilateral multifocal opacities and tracheobronchial secretions, consistent with aspiration versus septic emboli. Continue supportive care and supplemental oxygen. IV hydration. Serum lactic acid normal. Send stat blood cultures, not sent in the emergency room. Received IV Zosyn, developed anaphylactic reaction to IV vancomycin. Will continue IV Zosyn and linezolid MRSA nasal screen. Pulmonology following ID following High risk for complications. dyspnea is improved but with worsening non productive cough (3) Septic embolism Current Visit: Yes Status: Suspected Assessment and Plan: Patient has history of IV drug abuse with findings suggestive of septic emboli on CT scan. Follow-up blood cultures TTE with no obvious vegitations but poor study May need WENDIE if develops stigmata of endocardidits blood cx negative to date Continue IV antibiotics ID following appreciate recs. (4) Anaphylaxis Current Visit: Yes Status: Acute Assessment and Plan: Likely secondary to IV vancomycin recieved im and iv epi resolved (5) Acute encephalopathy Current Visit: Yes Status: Acute Assessment and Plan: Likely toxic/metabolic due to drug use, IV Benadryl, sepsis. Resolved for now, anticipate opioid withdrawl soon Continue current management, monitor closely. Fall precautions. (6) IV drug abuse Current Visit: Yes Status: Chronic (7) Heroin addiction Current Visit: Yes Status: Acute Assessment and Plan: Current everyday heroin use anticipate withdrawl monitor closely has gone through withdrawl in past as well DVT Prophylaxis: lovenox - Time Spent with Patient Total time spent is greater than 50% in coordination of care (as documented) at patient's floor/unit and/or counseling patient: 25 - 35 minutes Plan of Care Discussed with: patient Internal Medicine: Result - Labs CBC & Chem 7: 05/28/18 04:09 05/28/18 04:09 Labs: Short CBC 05/28/18 Range/Units 04:09 WBC 19.1 H D (4.3-11.1) K/mcL Hgb 12.7 D (11.5-15.4) g/dL Hct 39.0 (35.3-44.9) % Plt Count 291 (140-400) K/mcL Neutrophils # 13.8 H (1.6-8.9) K/mcL BMP 05/28/18 04:09 Sodium 139 Potassium 4.0 Chloride 110 H Carbon Dioxide 22 L BUN 8 Creatinine 0.72 Glucose 84 Calcium 8.8 Cardiac Enzymes 05/27/18 05/27/18 05/27/18 Range/Units 09:30 16:28 22:10 Troponin I < 0.03 < 0.03 < 0.03 (< 0.04) ng/mL - Impressions Impressions Echocardiogram 05/27/18 09:27 Impressions: LVEF 65%. No segmental dysfunction. Normal right ventricular structure and function. Normal left atrial size. Normal right atrial size. Trileaflet aortic valve. Mild aortic regurgitation. Normal mitral valve structure and function. No mitral regurgitation. No mitral stenosis. Trace tricuspid regurgitation. No evidence of pulmonary hypertension. Normal pulmonic valve structure and function. No pulmonic regurgitation. No pulmonic stenosis. Pulmonary artery not well visualized. Suboptimal study with inadequate visualization of the valves for vegetations. Please consider WENDIE if there is clinical suspicion for infective endocarditis Left Ventricular Wall Motion: Rest Echo Findings All wall segments showed normal motion. Findings: Study Quality * Technically sub-optimal due to clinical status. ECG Findings * Sinus tachycardia. Left Ventricle * LVEF 65%. * Normal LV chamber size, wall thickness and function. * Normal left ventricular diastolic function. * No segmental dysfunction. Right Ventricle * Normal right ventricular structure and function. Left Atrium * Normal left atrial size. Right Atrium * Normal right atrial size. Interatrial Septum * Interatrial septum not well evaluated. Aortic Valve * Trileaflet aortic valve. * Mild aortic regurgitation. Mitral Valve * Normal mitral valve structure and function. * No mitral regurgitation. * No mitral stenosis. Tricuspid Valve * Trace tricuspid regurgitation. * No evidence of pulmonary hypertension. Pulmonic Valve * Normal pulmonic valve structure and function. * No pulmonic regurgitation. * No pulmonic stenosis. Aorta * Normally sized aortic root. Pericardium * The pericardium appears normal. IVC * Normal IVC dimensions and inspiratory collapse. Pulmonary Artery * Pulmonary artery not well visualized. Consult Discharge Plan - Plan Referrals: Graciela Goode [Resident] - 06/10/18 2:00 pm (Please show up to your appointment 30 minutes early to fill out paper work, take with you to your appointment Ins. Card, Picture ID, a list of all medications including over the counter meds. This office does not give out controlled meds. If you need to cancel please call [phone] 24 hours before your appointment.) (1) Sepsis Qualifiers: Sepsis type: sepsis due to unspecified organism Qualified Code(s): A41.9 - Sepsis, unspecified organism (2) Pneumonia Qualifiers: Pneumonia type: due to unspecified organism Laterality: bilateral Lung location: unspecified part of lung Qualified Code(s): J18.9 - Pneumonia, unspecified organism (4) Anaphylaxis Qualifiers: Encounter type: initial encounter Qualified Code(s): T78.2XXA - Anaphylactic shock, unspecified, initial encounter
[2018-05-28] MEDS: Nicotine 21 MG PATCH.TD24 TD SCH (09:42)
[2018-05-28 10:33] VITALS: BP 120/78
--- NOTE | 2018-05-28 13:16 | Infectious Disease Progress No ---
Date of Encounter: 05/28/18 Time of Encounter: 09:00 - Assessment and Plan (1) Sepsis Status: Acute The patient had three SIRS criteria on admission. Likely secondary to multifocal pneumonia vs. septic emboli vs. other. Improved clinically. WBC worse this morning likely to steroids. Tachycardia and tachypnea have resolved. Blood cultures drawn 05/27/18 x 2 sets are pending. Additional 2 sets of blood cultures ordered 05/27/18 were ordered, but cancelled by nursing. Will ask lab to get another two sets of blood cultures now. Qualifiers: Sepsis type: sepsis due to unspecified organism Qualified Code(s): A41.9 - Sepsis, unspecified organism (2) Pneumonia Status: Suspected Location: Multifocal. Causative organism unclear. Based on CT findings, this does not appear to be a typical bacterial infection. Not sure if this is atypical. TB is less likely as the patient denies known exposure and has never been incarcerated. Concern for aspiration based on CT scan findings, but the patient denies any loss of consciousness related to her IV drug use. CTA of the chest was negative for PE, but did show diffuse airway inflammation with tracheobronchial secretions and multifocal ground-glass opacities/ consolidative opacities. Differential considerations include aspiration vs. septic emboli vs. pulmonary infarcts (less likely). Low index of suspicion for septic emboli or typical bacterial pneumonia. Check S. pneumo and Legionella UATs. --> negative. Check MRSA nasal screen. Ordered yesterday, but not collected. Collected this morning and pending results. Check RIP. --> negative. Get an additional set of blood cultures now. Check Quantiferon. Get AFB smear x 3 with each specimen at least 8 hours apart. Continue Zyvox 600mg IV BID for now. If MRSA screen is negative, discontinue. Continue Zosyn 3.375 grams IV Q8H. Start Levaquin 750mg IV daily. Duration of treatment depends on the clinical picture. Monitor renal function and for drug toxicity and dose-adjust antibiotics. Qualifiers: Pneumonia type: due to unspecified organism Laterality: bilateral Lung location: unspecified part of lung Qualified Code(s): J18.9 - Pneumonia, unspecified organism (3) Septic embolism Status: Suspected Possible, but low index of suspicion. Await blood culture results. Continue antibiotics as above. (4) Anaphylaxis Status: Acute Concern for reaction to Vancomycin. Appears resolved. Qualifiers: Encounter type: initial encounter Qualified Code(s): T78.2XXA - Anaphylactic shock, unspecified, initial encounter (5) IV drug abuse Status: Chronic Reports IV heroine use 1 week ago and IV meth use 2 days ago. Denies history of chronic infectious diseases. Check HIV status. --> nonreactive. Check Hepatitis profile. --> nonreactive. - Subjective Interval history: Patient seen and examined. No acute events noted overnight. Patient states overall she feels better, but now has a persistent, non-productive cough. Denies chest pain or shortness of breath. Denies fevers, chills, or rigors. Denies headache, neck pain, weakness, or dizziness. Denies nausea, vomiting, or diarrhea. Denies abdominal pain, urinary complaints, or appetite changes. Denies oral thrush or new skin lesions. Infect Dis PN-Objective Data - Labs CBC & Chem 7: 05/28/18 04:09 05/28/18 04:09 Labs: Laboratory Results - last 24 hr 05/27/18 05/27/18 05/27/18 16:20 16:28 22:10 WBC RBC Hgb Hct MCV MCH MCHC RDW Plt Count MPV Immature Gran % Seg Neutrophils % Lymphocytes % Monocytes % Eosinophils % Basophils % Neutrophils # Lymphocytes # Monocytes # Eosinophils # Basophils # Sodium Potassium Chloride Carbon Dioxide BUN Creatinine Est GFR ( Amer) Est GFR (Non-Af Amer) BUN/Creatinine Ratio Glucose Calculated Osmolality Calcium Magnesium Troponin I < 0.03 < 0.03 Chlamy pneumoniae PCR Not Detected Adenovirus (PCR) Not Detected B. pertussis DNA (PCR) Not Detected B.parapertussis DNA PCR Not Detected Coronavirus OC43 (PCR) Not Detected Coronavirus HKU1 (PCR) Not Detected Coronavirus 229E (PCR) Not Detected Coronavirus NL63 (PCR) Not Detected Hepatitis A IgM Ab Hep Bs Antigen Hep B Core IgM Ab Hepatitis C Ab Screen HIV Ag/Ab Combo Qual Human Metapneumovir PCR Not Detected Influenza A (H1) PCR Not Detected Influ A (H1N1/09) PCR Not Detected Influenza A (H3) PCR Not Detected Influenza A Untype (PCR) Not Detected Influenza Type B (PCR) Not Detected M.pneumoniae DNA (PCR) Not Detected Parainfluenza 1 (PCR) Not Detected Parainfluenza 2 (PCR) Not Detected Parainfluenza 3 (PCR) Not Detected Parainfluenza 4 (PCR) Not Detected RSV (PCR) Not Detected Entero/Rhino (PCR) Not Detected 05/27/18 05/28/18 05/28/18 22:10 04:09 04:09 WBC 19.1 H D RBC 4.48 Hgb 12.7 D Hct 39.0 MCV 87.1 MCH 28.3 MCHC 32.6 RDW 13.1 Plt Count 291 MPV 11.0 Immature Gran % 0.4 Seg Neutrophils % 72.4 Lymphocytes % 20.4 Monocytes % 5.9 Eosinophils % 0.7 Basophils % 0.2 Neutrophils # 13.8 H Lymphocytes # 3.9 Monocytes # 1.1 Eosinophils # 0.1 Basophils # 0.0 Sodium 139 Potassium 4.0 Chloride 110 H Carbon Dioxide 22 L BUN 8 Creatinine 0.72 Est GFR ( Amer) > 60 Est GFR (Non-Af Amer) > 60 BUN/Creatinine Ratio 11 Glucose 84 Calculated Osmolality 286 Calcium 8.8 Magnesium 1.9 Troponin I Chlamy pneumoniae PCR Adenovirus (PCR) B. pertussis DNA (PCR) B.parapertussis DNA PCR Coronavirus OC43 (PCR) Coronavirus HKU1 (PCR) Coronavirus 229E (PCR) Coronavirus NL63 (PCR) Hepatitis A IgM Ab Nonreactive Hep Bs Antigen Nonreactive Hep B Core IgM Ab Nonreactive Hepatitis C Ab Screen Nonreactive HIV Ag/Ab Combo Qual Nonreactive Human Metapneumovir PCR Influenza A (H1) PCR Influ A (H1N1/09) PCR Influenza A (H3) PCR Influenza A Untype (PCR) Influenza Type B (PCR) M.pneumoniae DNA (PCR) Parainfluenza 1 (PCR) Parainfluenza 2 (PCR) Parainfluenza 3 (PCR) Parainfluenza 4 (PCR) RSV (PCR) Entero/Rhino (PCR) Cultures: Cultures 05/27/18 11:13 Blood Culture - Preliminary Peripheral Venipuncture Culture is incubating and being continuously monitored for growth. Final report to follow. 05/27/18 11:10 Blood Culture - Preliminary Peripheral Venipuncture Culture is incubating and being continuously monitored for growth. Final report to follow. Serology 05/27/18 05/27/18 Range/Units 22:10 16:20 Chlamy pneumoniae PCR Not Detected (Not Detect) Adenovirus (PCR) Not Detected (Not Detect) B. pertussis DNA (PCR) Not Detected (Not Detect) B.parapertussis DNA PCR Not Detected (Not Detect) Coronavirus OC43 (PCR) Not Detected (Not Detect) Coronavirus HKU1 (PCR) Not Detected (Not Detect) Coronavirus 229E (PCR) Not Detected (Not Detect) Coronavirus NL63 (PCR) Not Detected (Not Detect) Hepatitis A IgM Ab Nonreactive (Nonreactive) Hep Bs Antigen Nonreactive (Nonreactive) Hep B Core IgM Ab Nonreactive (Nonreactive) Hepatitis C Ab Screen Nonreactive (Nonreactive) HIV Ag/Ab Combo Qual Nonreactive (Nonreactive) Human Metapneumovir PCR Not Detected (Not Detect) Influenza A (H1) PCR Not Detected (Not Detect) Influ A (H1N1/09) PCR Not Detected (Not Detect) Influenza A (H3) PCR Not Detected (Not Detect) Influenza A Untype (PCR) Not Detected (Not Detect) Influenza Type B (PCR) Not Detected (Not Detect) M.pneumoniae DNA (PCR) Not Detected (Not Detect) Parainfluenza 1 (PCR) Not Detected (Not Detect) Parainfluenza 2 (PCR) Not Detected (Not Detect) Parainfluenza 3 (PCR) Not Detected (Not Detect) Parainfluenza 4 (PCR) Not Detected (Not Detect) RSV (PCR) Not Detected (Not Detect) Entero/Rhino (PCR) Not Detected (Not Detect) Exam - Constitutional Vitals: Temp Pulse Resp BP Pulse Ox 98.1 F 103 18 120/78 95 05/28/18 10:32 05/28/18 12:06 05/28/18 12:02 05/28/18 10:32 05/28/18 12:02 General appearance: average body habitus, cooperative, no acute distress - Head Head exam: Present: atraumatic, normal inspection, normocephalic - Eye Eye exam: Present: EOMI, normal appearance, PERRL Pupils: Present: normal accommodation Additional comments: No subconjunctival hemorrhage noted. - ENT ENT exam: Present: mucous membranes moist - Neck Neck exam: Present: normal inspection - Respiratory Respiratory exam: Present: wheezes (Coarse expiratory wheezes throughout). Absent: CTAB, rales, respiratory distress, rhonchi - Cardiovascular Cardiovascular exam: Present: RRR, +S1, +S2 - GI/Abdominal GI/Abdominal exam: Present: normal bowel sounds, soft. Absent: distended, tenderness - Extremities Exam Extremities exam: Absent: joint swelling, normal inspection (Large, brown raised lesion noted to the anterior/medial aspect of the RLE without tenderness , warmth, erythema, or drainage.), pedal edema, tenderness - Back Exam Back exam: Present: normal inspection. Absent: paraspinal tenderness, vertebral tenderness - Neurological Exam Neurological exam: Present: alert, oriented X3, no focal deficits - Psychiatric Psychiatric exam: Present: normal affect, normal mood - Skin Skin exam: Present: dry, intact, normal color, warm Additional comments: No endocarditis stigmata noted. Consult Discharge Plan - Plan Referrals: Graciela Goode [Resident] - 06/10/18 2:00 pm (Please show up to your appointment 30 minutes early to fill out paper work, take with you to your appointment Ins. Card, Picture ID, a list of all medications including over the counter meds. This office does not give out controlled meds. If you need to cancel please call [phone] 24 hours before your appointment.) - Attending Attestation I examined this patient and my medical decision-making was reviewed with the Resident Physician. I agree with the documented findings, disposition and treatment plan as described except to the extent set forth below.
[2018-05-28] MEDS ORDERED: Levofloxacin 750 MG/150 ML 750 MG/150 ML BAG IVPB SCH (14:00)
--- NOTE | 2018-05-28 15:01 | Discharge Summary ---
- NOTES TO OUTPATIENT PROVIDER Notes to Outpatient Provider: Patient was admitted for pneumonia and possible septic emboli. Patient was started on IV broad-spectrum antibiotics and seen by pulmonology and infectious disease. Patient admitted to routine daily use of heroin. Patient left AMA despite RN trying to advise patient otherwise. Patient left abruptly and was not able to have medications prescribed. Orders not resulted at time of discharge: Pending orders 05/27/18 11:13 Culture,Blood [BC] Stat 05/28/18 13:22 AFB Smear [TB] Routine 05/28/18 13:23 AFB Smear [TB] Routine 05/28/18 13:24 AFB Smear [TB] Routine 05/28/18 14:10 Culture,Blood [BC] Stat QuantiFERON-TB Gold In-Tube Routine Date of Encounter: 05/28/18 Time of Encounter: 14:57 - Discharge Diagnosis (1) Sepsis Priority: Primary Status: Acute Qualifiers: Sepsis type: sepsis due to unspecified organism Qualified Code(s): A41.9 - Sepsis, unspecified organism (2) Pneumonia Priority: Secondary Status: Suspected Qualifiers: Pneumonia type: due to unspecified organism Laterality: bilateral Lung location: unspecified part of lung Qualified Code(s): J18.9 - Pneumonia, unspecified organism (3) Septic embolism Priority: Secondary Status: Suspected (4) Anaphylaxis Priority: Secondary Status: Acute Qualifiers: Encounter type: initial encounter Qualified Code(s): T78.2XXA - Anaphylactic shock, unspecified, initial encounter (5) Acute encephalopathy Priority: Secondary Status: Acute (6) IV drug abuse Priority: Secondary Status: Chronic (7) Heroin addiction Priority: Secondary Status: Acute Hospital course: Ms. Prieto is a 23 year old female cough and respiratory distress. The patient was found to have pneumonia with possible septic emboli. The patient admitted to daily use of heroin. The patient was admitted to the ICU after an anaphylactic reaction IV vancomycin. This resolved. The patient was continued on IV antibiotics and was seen by pulmonology and infectious disease. The patient left AMA rather abruptly despite RN trying to commence patient stay. Due to her leaving abruptly before I was able to see the patient she was not given any prescriptions. Patient is high risk for worsening of condition including . Patient told RN that she would likely follow up with [facility]. Discharge discussed with: nurse - Time Spent with Patient Total time spent providing and/or coordinating discharge services: Less than 30 minutes - Discharge Medications Home Medications: Unable To Obtain [Unable to Obtain] 05/27/18 [History] Allergies/Adverse Reactions: 3 Allergy/AdvReac Type Severity Reaction Status Date / Time vancomycin Allergy Anaphylaxis Verified 05/27/18 17:25 Date of admission: 05/27/18 09:16 Primary care physician: PCP NONE Consults: 05/27/18 09:27 Consult to Pulmonology [CONS] Routine Consulting Provider: [facility] [place] Reason for Consult: Chest pain, dyspnea with Meth and IVDU, with B/L septic emboli on CT Call Completed: Yes 05/27/18 15:25 Consult to Infectious Diseases [CONS] Routine Consulting Provider: [facility] [place] Reason for Consult: Possible endocarditis, had reaction to Vanc Time Notified: 15:26 Call Completed: Yes - Constitutional Vitals: Temp Pulse Resp BP Pulse Ox 98.1 F 103 18 120/78 95 05/28/18 10:32 05/28/18 12:06 05/28/18 12:02 05/28/18 10:32 05/28/18 12:02 General appearance: Present: A&O X 2 (somnolent, responds to tactile stimulus, falls back asleep), answers questions appropriately Exam: This exam was earlier in day Constitutional: No acute distress, Alert Psych: AAO x 3 HEENT: NCAT, EOMI Cardio: regular rate and rhythm, +s1s2, no murmurs/rubs/gallops, no JVD Resp: coarse bs with ronchi and wheezing Abd: soft, non tender/non distended, positive bowel sounds, no gaurding/reboud/ ridgitity Extremities: no clubbing/cyanosis/edema appreciated, track wheeler on arms, no stigmata of endocarditis appreciated Neuro: no focal deficits appreciated - Patient Status Disposition: Left Against Medical Advice Condition: Serious Functional capacity at discharge: independent ambulation Overall status at discharge: patient is not back to baseline - Discharge Instructions Follow Up With: Graciela Goode [Resident] - 06/10/18 2:00 pm (Please show up to your appointment 30 minutes early to fill out paper work, take with you to your appointment Ins. Card, Picture ID, a list of all medications including over the counter meds. This office does not give out controlled meds. If you need to cancel please call [phone] 24 hours before your appointment.) - Diet and Activity Activity: other Diet: advance to your usual diet
[2018-05-31 15:44] LABS: QuantiFERON Mitogen minus NIL 9.22 IU/mL
--- NOTE | 2018-06-01 14:14 | Electrocardiograph Report ---
[address] [place], [place] [address] Test Date: 2018-05-27 Pat Name: Nadine Prieto Department: [id number] Room: 2N10 Gender: F [employer]: : 1995 Requested By: Melissa Salcedo Order Number: [id number] Reading MD: Ray Hollis Measurements Intervals [place] Rate: 105 P: 76 AK: 110 QRS: 78 QRSD: 84 T: 58 QT: 337 QTc: 446 Interpretive Statements Sinus tachycardia Electronically Signed On 06-01-2018 14:13:13 EDT by Ray Hollis
[2018-06-02 14:15] LABS: QuantiFERON NIL 0.03 IU/mL; QuantiFERON-TB Gold In-Tube NEGATIVE (Negative)
== END 2018-05-28 14:41 | disposition left against medical advice (07) | DRG 720 ==
LOC: EMEROOARM 01:49 → ICNU 01:49 → 2NNU 17:47
PROVIDERS: ADMIT Family Medicine; ATTEND Family Medicine

== ENCOUNTER 2018-06-01 | Inpatient (IN) ==
[2018-06-01] MEDS ORDERED: 0.9 % Sodium Chloride 1,000 ML IVC ONE (00:33)
[2018-06-01] MEDS ORDERED: Piperacillin/Tazobactam 3.375 GM in Water for inj. (sterile) 20 ML 20 ML IVP ONE (00:33)
--- NOTE | 2018-06-01 00:49 | Emergency Department Note ---
Disposition Clinical Impression: IV drug abuse, Wheezing Pneumonia Qualifiers: Pneumonia type: due to unspecified organism Laterality: right Lung location: lower lobe of lung Qualified Code(s): J18.1 - Lobar pneumonia, unspecified organism Dyspnea Qualifiers: Dyspnea type: shortness of breath Qualified Code(s): R06.02 - Shortness of breath Disposition: Home, Self-Care Condition: Fair Time of Disposition: 03:21 General Adult HPI - General Chief complaint: ED Shortness of Breath/Dyspnea Stated complaint: difficult breathing. Time Seen by Provider: 06/01/18 00:14 Source: patient Mode of arrival: ambulatory Limitations: no limitations Nursing Notes Reviewed: Yes Vital Signs Reviewed: Yes - History of Present Illness HPI Narrative: Patient is a 23-year-old female presenting with increasing shortness of breath. Patient states that she began to have increasing shortness of breath 7 days ago, was seen in the emergency department and admitted for pneumonia or septic emboli on 05/26/2018. While admitted, she was placed on antibiotics and was in the hospital, however, left AMA before definitive treatment and diagnosis had been found. The following day she went back to the emergency department on 05/29/2018 and signed out AMA once again. She states when she left the emergency department, she was asymptomatic and has without symptoms been for the last 3 days however, this morning she began to have increasing shortness of breath with pleuritic chest pain. She denies fever, chills. She states her current symptoms are similar however not as severe as her initial presentation. She states that she was was to be taking antibiotics when she was discharged from the ER, however she is not taking these. She states that she has used heroin twice since last seen, does admit to hx of IV drug use as well. Pain Scale: 2 - Related Data Home Medications Medication Instructions Recorded Confirmed No Known Home Drugs 06/01/18 06/01/18 Allergies Allergy/AdvReac Type Severity Reaction Status Date / Time vancomycin Allergy Anaphylaxis Verified 05/27/18 17:25 All systems ED: reviewed and negative except as stated. Review of Systems: As Per HPI Constitutional: Denies: fever, chills ENT ED: Denies: congestion Cardiovascular: Reports: chest pain (With deep inspiration), dyspnea on exertion. Denies: palpitations, syncope Respiratory: Reports: dyspnea, wheezes. Denies: cough, hemoptysis, sputum production Gastrointestinal: Denies: abdominal pain, nausea, vomiting Genitourinary: Denies: urgency, dysuria Musculoskeletal: Denies: back pain Integumentary: Denies: rash Neurological: Denies: headache Hematological/Lymphatic: Denies: easy bleeding Past Medical History - Past Medical History Medical history: Reports: no medical history Surgical history: Reports: no surgical history Psychiatric history: Reports: no psych history - Social History Smoking Status: Current every day smoker Smokeless Tobacco Status: No Alcohol use: Reports: none Drug use: Reports: marijuana, methamphetamine, IV Drug Use Physical Exam - General Limitations: no limitations General appearance: alert, in no apparent distress - Head Head exam: atraumatic, normocephalic - Eye Eye exam: Present: normal appearance, PERRL, EOMI - ENT ENT exam: normal exam, mucous membranes moist - Neck Neck exam: Present: normal inspection - Chest Chest inspection: Present: normal inspection, symmetric chest wall rise - Respiratory Respiratory exam: Present: wheezes (Throughout greatest throughout the bases). Absent: accessory muscle use - Cardiovascular Cardiovascular exam: Present: normal rhythm, tachycardia (Tachycardic while in the room at 101) - Abdominal Exam Abdominal exam: Present: soft, Non-Tender, normal bowel sounds. Absent: tenderness, distention, guarding, rebound, rigidity - Extremities Exam Extremities exam: Present: normal inspection, normal capillary refill. Absent: tenderness, pedal edema, calf tenderness - Expanded Lower Extremity Exam Neurovascular/Tendon exam: Absent: pulse deficit, motor deficit, sensory deficit - Back Exam Back exam: Present: normal inspection - Neurological Exam Neurological exam: Present: alert, oriented X3, CN II-XII intact - Psychiatric Psychiatric exam: Present: normal affect, normal mood - Skin Skin exam: Present: warm, dry, intact Course Course Narrative: We will order a septic workup including CBC, BMP, lactic acid, chest x-ray, blood cultures. With recent history of pneumonia or septic emboli and started Zosyn antibiotics, which shows what patient was originally on during admission per infectious disease. Also gave fluids. Vital Signs Temperature 97.8 F 06/01/18 00:02 Pulse Rate 113 06/01/18 00:02 Respiratory Rate 18 06/01/18 00:02 Blood Pressure 119/75 06/01/18 00:02 O2 Sat by Pulse Oximetry 95 06/01/18 00:02 Temperature 98.1 F 06/01/18 07:07 Pulse Rate 87 06/01/18 07:07 Respiratory Rate 18 06/01/18 07:07 Blood Pressure 118/82 06/01/18 07:07 O2 Sat by Pulse Oximetry 98 06/01/18 07:07 Oxygen Delivery Oxygen Delivery Room Air Medical Decision Making - MDM Narrative Medical decision making narrative: Patient is a 23-year-old female presenting with increasing difficulty breathing. Patient had recently been been admitted for pneumonia versus septic emboli however left AMA. She was then seen in the emergency department for increasing symptoms 4 days ago however left AMA again and was discharged on antibiotics. Patient declines taking his antibiotics, states that she has been asymptomatic for the past 3 days however this morning she began having symptoms of increasing shortness of breath and pleuritic chest pain. Workup in the department revealed CBC which was unremarkable with no elevation of white count , a BMP was within normal limits, lactic acid normal. Chest x-ray shows continuing improvement in the right lobe space opacity, patient has remained stable while in the emergency department however does appear on exam to be slightly anxious and increased work of breathing, did give DuoNeb 3. On reevaluation, patient has improved markedly following doing nebs 3 with improved work of breathing and lung sounds. Patient has remained stable, initially patient was tachycardic and tachypneic, however following doing nebs vital signs are within normal limits. Given patient's history and noncompliance with outpatient failed management, would recommend that the patient be brought in to the hospital for admission of pneumonia versus septic emboli. Patient was discussed with hospitalist, at 0319 and has been accepted. - Medical Records Medical records reviewed: Yes I reviewed the patient's medical records. - Lab Data Lab results reviewed: Yes I reviewed the patient's lab results. Result diagrams: 06/01/18 01:13 06/01/18 01:13 Lab Results 06/01/18 06/01/18 06/01/18 Range/Units 01:13 01:13 01:13 WBC 9.7 (4.3-11.1) K/mcL RBC 4.75 (3.82-4.97) M/mcL Hgb 13.5 (11.5-15.4) g/dL Hct 42.5 (35.3-44.9) % MCV 89.5 (83.0-100.0) fL MCH 28.4 (28.0-33.3) pg MCHC 31.8 (31.6-35.5) g/dL RDW 13.2 (11.5-14.5) % Plt Count 283 (140-400) K/mcL MPV 10.9 (9.4-12.4) fL Immature Gran % 0.2 (0-4) % Seg Neutrophils % 35.5 % Lymphocytes % 41.9 % Monocytes % 5.2 % Eosinophils % 16.8 % Basophils % 0.4 % Neutrophils # 3.4 (1.6-8.9) K/mcL Lymphocytes # 4.1 (0.6-4.6) K/mcL Monocytes # 0.5 (0.0-1.3) K/mcL Eosinophils # 1.6 H (0.0-0.6) K/mcL Basophils # 0.0 (0.0-0.2) K/mcL Sodium 138 (136-145) mEq/L Potassium 3.9 (3.5-5.1) mEq/L Chloride 108 H (98-107) mEq/L Carbon Dioxide 23 (23-29) mEq/L BUN 10 (6-20) mg/dL Creatinine 0.86 (0.60-1.20) mg/dL Est GFR ( Amer) > 60 (> 60) Est GFR (Non-Af Amer) > 60 (> 60) BUN/Creatinine Ratio 12 (6-26) Glucose 107 H (70-105) mg/dL Calculated Osmolality 286 (280-300) Lactic Acid 1.9 (0.5-2.2) mmol/L Calcium 9.0 (8.6-10.3) mg/dL Phosphorus 4.9 H (2.7-4.5) mg/dL Magnesium 2.2 (1.6-2.6) mg/dL - Radiology Data Radiology results reviewed: Yes I reviewed the patient's radiology results. Chest X-Ray 06/01/18 00:35 IMPRESSION: Improving right lower lobe airspace disease. D/ / Celestine Edouard MD / Celestine Edouard MD Interpreting Provider: Celestine Edouard MD - EKG Data EKG #1 EKG attestation: Yes I reviewed and interpreted this EKG. EKG results narrative: EKG performed at 0201 with ventricular rate of 105, regular rhythm, normal axis , no signs of hypertrophy, NH 110, QRS, 84, QT 337, QTC 446, no ST segment depression, elevation or T-wave changes. Overall EKG impression is sinus tachycardia.
[2018-06-01] MEDS ORDERED: Ipratropium/Albuterol Neb 3 ML IH ONE (01:41)
[2018-06-01 01:45] LABS: Basophils % 0.4 %; Eosinophils # 1.6 K/mcL (0.0-0.6); Eosinophils % 16.8 %; Hematocrit 42.5 % (35.3-44.9); Hemoglobin 13.5 g/dL (11.5-15.4); Immature Granulocytes % 0.2 % (0-4); Lymphocytes # 4.1 K/mcL (0.6-4.6); Lymphocytes % 41.9 %; Mean Corpuscular HGB Conc 31.8 g/dL (31.6-35.5); Mean Corpuscular Hemoglobin 28.4 pg (28.0-33.3); Mean Corpuscular Volume 89.5 fL (83.0-100.0); Mean Platelet Volume 10.9 fL (9.4-12.4); Monocytes # 0.5 K/mcL (0.0-1.3); Monocytes % 5.2 %; Neutrophils # 3.4 K/mcL (1.6-8.9); Platelet Count 283 K/mcL (140-400); Red Blood Count 4.75 M/mcL (3.82-4.97); Red Cell Distribution Width 13.2 % (11.5-14.5); Segmented Neutrophils % 35.5 %
[2018-06-01 01:53] LABS: BUN/Creatinine Ratio 12 (6-26); Blood Urea Nitrogen 10 mg/dL (6-20); Carbon Dioxide 23 mEq/L (23-29); Chloride 108 mEq/L (98-107); Glucose 107 mg/dL (70-105); Magnesium 2.2 mg/dL (1.6-2.6); Osmolality,Calculated 286 (280-300); Phosphorous 4.9 mg/dL (2.7-4.5); Potassium 3.9 mEq/L (3.5-5.1); Sodium 138 mEq/L (136-145); eGFR For Non-African Americans > 60 (> 60)
[2018-06-01] MEDS ORDERED: Naloxone 0.4 MG/ML INJ IVP PRN ×2 (04:30→09:12)
--- NOTE | 2018-06-01 04:38 | Internal Med History&Physical ---
<Javier Murcia - Last Filed: 06/01/18 04:35> Date of Encounter: 06/01/18 Time of Encounter: 04:35 Internal Medicine - H&P: HPI Chief complaint: Shortness of breath Admitted From: Home Plans for Post Hospital Care: Home History of present illness: Ms. Prieto is a 23 year old female presented with chief complaint of worsening shortness of breath. First started yesterday evening and progressively worsened. Patient reported some sputum production but denied fever, chills, sick contacts. Patient has had multiple visits to the hospital in the past 7 days for this for shortness of breath but has left AMA. She was admitted on for pneumonia/septic emboli and started on IV antibiotics per left AGAINST MEDICAL ADVICE. She then returned to the emergency department on 2017 and again signed out AMA, where she was given prescription for antibiotics but she did not take these. Patient has a history of IV drug use including heroin. She has track wheeler on her arms. She reports she uses heroin 2 days ago but snorted at this time. She uses heroin with her significant other who is in no form with her during my encounter. She also has a history of using methamphetamine Past Med Surg Social Fam HX - Past Medical History Medical history: no medical history Psychiatric history: no psych history - Past Surgical History Surgical History: no surgical history - Social History Smoking Status: Current every day smoker Smokeless Tobacco Status: No Alcohol use: none Drug use: marijuana, methamphetamine, IV Drug Use - Family History Mother Hx Family Cancer: Yes Internal Medicine - H&P: Meds No Known Home Drugs 06/01/18 [History] 3 Allergy/AdvReac Type Severity Reaction Status Date / Time vancomycin Allergy Anaphylaxis Verified 05/27/18 17:25 All Systems PM: A 10-system review of systems was performed and is negative for pertinent findings except as documented above in the HPI. Review of systems: Constitutional: Denies fever, chills HEENT: Denies headache, vision changes, neck pain, sore throat, rhinorrhea Heart: Denies chest pain palpitations Lungs: Shortness of breath, cough, sputum production Abdomen: Denies abdominal pain nausea vomiting diarrhea Back: Denies back pain Kidney: Denies dysuria, hematuria Skin: Denies rash, lesions Extremities: Denies swelling, pain Neuro: Denies numbness and tingling - Constitutional Vitals: Temp Pulse Resp BP Pulse Ox 97.8 F 91 20 113/74 97 06/01/18 00:02 06/01/18 03:29 06/01/18 03:29 06/01/18 03:29 06/01/18 03:29 Exam: General: Pleasant without distress HEENT: Head atraumatic, normocephalic, EOMI, PERRL, neck nontender to palpation , absent lymphadenopathy, Moist Mucous Membranes, Heart: Regular rate and rhythm with no murmur Lungs: Expiratory wheezing Abdomen: Soft nontender, nondistended positive bowel sounds Skin: Multiple track wheeler on bilateral upper extremity Extremities: Absent pedal edema, Neuro: Cranial nerves II through XII intact, UE and LE sensation equal bilaterally, UE and LEstrength 5/5, alert oriented 3, Vascular: Pedal and radial pulses 2 out of 4 Internal Med - H&P Results - Labs CBC & Chem 7: 06/01/18 01:13 06/01/18 01:13 - Assessment and plan (1) Pneumonia Status: Suspected Assessment and plan: 23-year-old female presented with chief complaint of shortness of breath Patient during her previous hospital visit on 05/27/18 was being worked up for pneumonia versus septic emboli before she left AMA She is a IV drug user CTA showed diffuse airway inflammation, multifocal groundglass/consolidative opacities, right hilar lymphadenopathy Patient artery had urine Legionella and strep pneumonia antigens drawn which were negative. MRSA nasal swab was negative, RA PE was negative Blood cultures drawn from the previous hospital visits have not grown anything thus far. Blood cultures also drawn from this admission. CXR 06/01/18 shows improving right lower lobe airspace disease Plan: will continue zosyn. will reconsult ID. Qualifiers: Pneumonia type: due to unspecified organism Laterality: bilateral Lung location: unspecified part of lung Qualified Code(s): J18.9 - Pneumonia, unspecified organism (2) Septic embolism Status: Suspected Assessment and plan: Based on CTA there was suspicion for septic emboli we will await blood culture results (3) IVDU (intravenous drug user) Status: Acute Assessment and plan: patient has hx of using heroin and methamphetamine she uses drugs with her significant other she has also used methamphetamine HIV, Hepatitis negative - Time Spent With Patient Total time spent is greater than 50% in coordination of care (as documented) at patient's floor/unit and/or counseling patient: <Prerna Hayden - Last Filed: 06/03/18 08:29> Date of Encounter: 06/01/18 Internal Medicine - H&P: HPI History of present illness: Ms. Prieto is a 23 year old female Past Med Surg Social Fam HX - Family History Mother Hx Family Cancer: Yes Father Living Status: Still Living Hx Family Cardiac Disorders: Yes All Systems PM: A 10-system review of systems was performed and is negative for pertinent findings except as documented above in the HPI. - Constitutional Vitals: Temp Pulse Resp BP Pulse Ox 97.7 F 104 16 101/66 99 06/02/18 04:20 06/02/18 15:40 06/02/18 16:52 06/02/18 15:40 06/02/18 16:52 Internal Med - H&P Results - Labs CBC & Chem 7: 06/02/18 05:41 06/02/18 05:41 - Assessment and plan (1) Pneumonia Status: Acute Qualifiers: Pneumonia type: due to unspecified organism Laterality: bilateral Lung location: unspecified part of lung Qualified Code(s): J18.9 - Pneumonia, unspecified organism (2) Septic embolism Status: Suspected (3) IVDU (intravenous drug user) Status: Chronic - Time Spent With Patient Total time spent is greater than 50% in coordination of care (as documented) at patient's floor/unit and/or counseling patient: - Attending Attestation Patient seen and examined case discussed with resident. Agree with assessment and plan. Case also discussed with ID. Continue with previous antibiotic management for possible multifocal pneumonia. Also recommend echocardiogram due to recent history of IV drug abuse and the possibility that presentation may be secondary to multifocal septic emboli
--- NOTE | 2018-06-01 07:33 | Emergency Department Note ---
Disposition Clinical Impression: IV drug abuse, Wheezing Pneumonia Qualifiers: Pneumonia type: due to unspecified organism Laterality: right Lung location: lower lobe of lung Qualified Code(s): J18.1 - Lobar pneumonia, unspecified organism Dyspnea Qualifiers: Dyspnea type: shortness of breath Qualified Code(s): R06.02 - Shortness of breath; R06.00 - Dyspnea, unspecified; R06.01 - Orthopnea Disposition: Home, Self-Care Condition: Fair General Adult HPI - General Chief complaint: ED Shortness of Breath/Dyspnea Stated complaint: difficult breathing. Time Seen by Provider: 06/01/18 00:14 Source: patient Mode of arrival: ambulatory Limitations: no limitations Nursing Notes Reviewed: Yes Vital Signs Reviewed: Yes - History of Present Illness Pain Scale: 2 - Related Data Home Medications Medication Instructions Recorded Confirmed No Known Home Drugs 06/01/18 06/01/18 Allergies Allergy/AdvReac Type Severity Reaction Status Date / Time vancomycin Allergy Anaphylaxis Verified 05/27/18 17:25 Constitutional: Denies: fever, chills ENT ED: Denies: congestion Cardiovascular: Reports: chest pain (With deep inspiration), dyspnea on exertion. Denies: palpitations, syncope Respiratory: Reports: dyspnea, wheezes. Denies: cough, hemoptysis, sputum production Gastrointestinal: Denies: abdominal pain, nausea, vomiting Genitourinary: Denies: urgency, dysuria Musculoskeletal: Denies: back pain Integumentary: Denies: rash Neurological: Denies: headache Hematological/Lymphatic: Denies: easy bleeding Past Medical History - Past Medical History Medical history: Reports: no medical history Surgical history: Reports: no surgical history Psychiatric history: Reports: no psych history - Social History Smoking Status: Current every day smoker Smokeless Tobacco Status: No Alcohol use: Reports: none Drug use: Reports: marijuana, methamphetamine, IV Drug Use Physical Exam - General Limitations: no limitations General appearance: alert, in no apparent distress Course Vital Signs Temperature 97.8 F 06/01/18 00:02 Pulse Rate 113 06/01/18 00:02 Respiratory Rate 18 06/01/18 00:02 Blood Pressure 119/75 06/01/18 00:02 O2 Sat by Pulse Oximetry 95 06/01/18 00:02 Temperature 98.1 F 06/01/18 07:07 Pulse Rate 87 06/01/18 07:07 Respiratory Rate 18 06/01/18 07:07 Blood Pressure 118/82 06/01/18 07:07 O2 Sat by Pulse Oximetry 98 06/01/18 07:07 Oxygen Delivery Oxygen Delivery Room Air Medical Decision Making - Medical Records Medical records reviewed: Yes I reviewed the patient's medical records. - Lab Data Lab results reviewed: Yes I reviewed the patient's lab results. Result diagrams: 06/01/18 01:13 06/01/18 01:13 Lab Results 06/01/18 06/01/18 06/01/18 Range/Units 01:13 01:13 01:13 WBC 9.7 (4.3-11.1) K/mcL RBC 4.75 (3.82-4.97) M/mcL Hgb 13.5 (11.5-15.4) g/dL Hct 42.5 (35.3-44.9) % MCV 89.5 (83.0-100.0) fL MCH 28.4 (28.0-33.3) pg MCHC 31.8 (31.6-35.5) g/dL RDW 13.2 (11.5-14.5) % Plt Count 283 (140-400) K/mcL MPV 10.9 (9.4-12.4) fL Immature Gran % 0.2 (0-4) % Seg Neutrophils % 35.5 % Lymphocytes % 41.9 % Monocytes % 5.2 % Eosinophils % 16.8 % Basophils % 0.4 % Neutrophils # 3.4 (1.6-8.9) K/mcL Lymphocytes # 4.1 (0.6-4.6) K/mcL Monocytes # 0.5 (0.0-1.3) K/mcL Eosinophils # 1.6 H (0.0-0.6) K/mcL Basophils # 0.0 (0.0-0.2) K/mcL Sodium 138 (136-145) mEq/L Potassium 3.9 (3.5-5.1) mEq/L Chloride 108 H (98-107) mEq/L Carbon Dioxide 23 (23-29) mEq/L BUN 10 (6-20) mg/dL Creatinine 0.86 (0.60-1.20) mg/dL Est GFR ( Amer) > 60 (> 60) Est GFR (Non-Af Amer) > 60 (> 60) BUN/Creatinine Ratio 12 (6-26) Glucose 107 H (70-105) mg/dL Calculated Osmolality 286 (280-300) Lactic Acid 1.9 (0.5-2.2) mmol/L Calcium 9.0 (8.6-10.3) mg/dL Phosphorus 4.9 H (2.7-4.5) mg/dL Magnesium 2.2 (1.6-2.6) mg/dL - Radiology Data Radiology results reviewed: Yes I reviewed the patient's radiology results. Chest X-Ray 06/01/18 00:35 IMPRESSION: Improving right lower lobe airspace disease. D/ / Celestine Edouard MD / Celestine Edouard MD Interpreting Provider: Celestine Edouard MD - EKG Data EKG #1 EKG attestation: Yes I reviewed and interpreted this EKG. EKG results narrative: EKG showed a sinus tachycardia with ventricular rate 105. No acute ST segment elevation or depression. No ectopy. Attestation Statement - Attestation Attestation: I, Jair Edwards MD, personally evaluated this patient and discussed their management with the resident physician. I reviewed the resident's note and agree with the documented findings, medical decision making, and plan of care. This patient is a 23-year-old female with a history of IV drug abuse who presents to the emergency department with a complaint of increased wheezing and chest tightness and shortness of breath. Patient was seen here approximately 5 days ago with respiratory distress and had a CTA which showed multifocal pneumonia and possible early septic pulmonary emboli. Patient was admitted to the hospital at that time and received IV antibiotics. She apparently left AMA after one or 2 days in the hospital. She will return to the emergency department within the past day or 2 and refused hospital admission. She returns tonight agreeable to hospital admission because of worsening wheezing and shortness of breath. She denies any prior history of asthma or breathing problems prior to onset of this episode about 5 days ago. On examination patient is a well-developed thin female in mild respiratory distress. She is alert and oriented 3. There is no cyanosis or diaphoresis. Patient is using accessory muscles of respiration. Breath sounds are decreased bilaterally with diffuse tight bilateral expiratory wheezes. Heart is tachycardic and regular. Abdomen soft and nontender with normal bowel sounds. Labs and chest x-ray reviewed. The hospitalist, Dr. Gonzalez, was consulted and accepted admission of the patient.
[2018-06-01 07:37] LABS: Bilirubin,Urine Negative (Negative); Blood,Urine Moderate (Negative); Clarity,Urine Clear (Clear); Color,Urine Yellow (Yellow); Glucose,Urine (UA) Normal (Normal); Ketones,Urine Negative (Negative); Leukocyte Esterase,Urine Negative (Negative); Nitrite,Urine Negative (Negative); Protein,Urine Negative (Neg-Trace); Specific Gravity,Urine 1.011 (1.010-1.025); Urobilinogen,Urine Normal (Normal)
[2018-06-01 07:39] LABS: Bacteria,Urine None Seen per hpf (None-Few); Hyaline Casts,Urine None Seen per lpf (None-Few); RBC,Urine 15-30 per hpf (0-3); Squamous Epithelial Cell,Urine Many per lpf (None-Few)
[2018-06-01] MEDS: Piperacillin/Tazobactam 3.375 GM in 0.9 % Sodium Chloride Mini Bag 100 ML IVPB SCH ×2 (08:19→16:35)
--- NOTE | 2018-06-01 09:07 | Event Note ---
Date of Encounter: 06/01/18 Time of Encounter: 09:00 Seen and assessed. Agree with plan per night time team for multifocal pneumonia with possible septic emboli noted on CTA chest 05/27. Patient was recently for the same complaints here but signed out AMA on 05/28. developed worsening shortness of breath yesterday. Will continue zyvox and zosyn per last ID recs. Repeat blood cultures. Has a history of IV drug abuse, last echocardiogram was suboptimal for evaluating for vegetations. Follow up ID recs , to see if WENDIE is indicated. Follow up blood cultures
[2018-06-02] MEDS: Nicotine 14 MG PATCH.TD24 TD SCH ×2 (00:04→10:08)
[2018-06-02] MEDS: Piperacillin/Tazobactam 3.375 GM in 0.9 % Sodium Chloride Mini Bag 100 ML IVPB SCH ×3 (00:04→16:21)
[2018-06-02] MEDS: Levalbuterol Neb 1.25 MG/3 ML IH SCH ×3 (00:10→10:46)
[2018-06-02] MEDS ORDERED: Levalbuterol Neb 1.25 MG/3 ML ONE (03:56)
[2018-06-02 06:18] LABS: Basophils % 0.3 %; Eosinophils # 1.9 K/mcL (0.0-0.6); Eosinophils % 15.5 %; Hematocrit 45.7 % (35.3-44.9); Immature Granulocytes % 0.2 % (0-4); Lymphocytes # 3.5 K/mcL (0.6-4.6); Lymphocytes % 29.2 %; Mean Corpuscular HGB Conc 33.3 g/dL (31.6-35.5); Mean Corpuscular Hemoglobin 29.3 pg (28.0-33.3); Mean Corpuscular Volume 88.1 fL (83.0-100.0); Mean Platelet Volume 10.5 fL (9.4-12.4); Monocytes # 0.8 K/mcL (0.0-1.3); Monocytes % 6.7 %; Neutrophils # 5.8 K/mcL (1.6-8.9); Platelet Count 299 K/mcL (140-400); Red Blood Count 5.19 M/mcL (3.82-4.97); Red Cell Distribution Width 13.4 % (11.5-14.5); Segmented Neutrophils % 48.1 %
[2018-06-02 06:24] LABS: Hemoglobin 15.2 g/dL (11.5-15.4)
[2018-06-02 06:43] LABS: BUN/Creatinine Ratio 10 (6-26); Blood Urea Nitrogen 8 mg/dL (6-20); Calcium 9.3 mg/dL (8.6-10.3); Carbon Dioxide 23 mEq/L (23-29); Chloride 104 mEq/L (98-107); Glucose 114 mg/dL (70-105); Magnesium 2.2 mg/dL (1.6-2.6); Osmolality,Calculated 279 (280-300); Phosphorous 3.5 mg/dL (2.7-4.5); Potassium 4.1 mEq/L (3.5-5.1); Sodium 135 mEq/L (136-145); eGFR For Non-African Americans > 60 (> 60)
--- NOTE | 2018-06-02 14:28 | Internal Med Progress Note ---
Hospitalist Progress Note - Encounter Date of Encounter: 06/02/18 Time of Encounter: 10:45 - Subjective Interval History: Reports feeling better. She is noted to be sitting up in bed, on a telephone call with a friend. She also has 2 male friends/family in the room, who do not participate in her plan of care discussion. Reports improved chest tightness and shortness of breath. No fever, chills, cough, palpitations. Tolerates oral diet. - Exam Vitals: Temp Pulse Resp BP Pulse Ox 97.7 F 79 16 116/65 96 06/02/18 04:20 06/02/18 06:44 06/02/18 10:46 06/02/18 06:44 06/02/18 10:46 Exam: General: Well-developed female sitting up in bed in no acute distress Skin: Warm and supple HEENT: Moist mucous membranes. Chest: Normal thoracic expansion. Coarse breath sounds. Clear to auscultation. Heart: Normal S1 & S2; rhythmic. No rubs or murmurs. Tachycardic; Abdomen: Non-distended, soft and nontender Extremities: No clubbing, cyanosis or edema. No calf tenderness. Normal distal pulses. Neurological: Awake, alert and oriented to person, place and time. No focal deficits. - Assessment and Plan (1) Pneumonia Current Visit: Yes Status: Acute Assessment and Plan: Patient has had multiple hospital and ER visits in the last couple of weeks, has signed out AGAINST MEDICAL ADVICE the last 2 times. She has history of substance abuse including IV heroin, was diagnosed with bilateral septic emboli during previous admission and started on broad-spectrum IV antibiotics when she left AGAINST MEDICAL ADVICE. Multiple blood cultures so far remain negative. Urine legionella and strep pneumoniae antigen, nasal MRSA screen, respiratory infection panel have all been negative during recent admission. Transthoracic echocardiogram was technically difficult, no identifiable valvular vegetations. Follow-up ID recommendations. Patient is currently on IV Zyvox and Zosyn due to anaphylactic reaction to vancomycin during previous admission. Continue supportive care and supplemental oxygen as needed. (2) Septic embolism Current Visit: Yes Status: Suspected Assessment and Plan: Plan as above. (3) IVDU (intravenous drug user) Current Visit: Yes Status: Chronic DVT Prophylaxis: Patient is ambulatory, active. - Time Spent with Patient Total time spent is greater than 50% in coordination of care (as documented) at patient's floor/unit and/or counseling patient: Plan of Care Discussed with: patient Internal Medicine: Result - Labs CBC & Chem 7: 06/02/18 05:41 06/02/18 05:41 Labs: Short CBC 06/02/18 Range/Units 05:41 WBC 12.1 H (4.3-11.1) K/mcL Hgb 15.2 D (11.5-15.4) g/dL Hct 45.7 H (35.3-44.9) % Plt Count 299 (140-400) K/mcL Neutrophils # 5.8 (1.6-8.9) K/mcL BMP 06/02/18 05:41 Sodium 135 L Potassium 4.1 Chloride 104 Carbon Dioxide 23 BUN 8 Creatinine 0.84 Glucose 114 H Calcium 9.3 Consult Discharge Plan - Plan Referrals: Azam Henderson MD [Family Provider] - (1) Pneumonia Qualifiers: Pneumonia type: due to unspecified organism Laterality: bilateral Lung location: unspecified part of lung Qualified Code(s): J18.9 - Pneumonia, unspecified organism
[2018-06-02] MEDS: Albuterol 2.5 MG/3 ML NEBULIZER IH SCH ×2 (15:26→16:52)
[2018-06-02 15:41] VITALS: BP 101/66
--- NOTE | 2018-06-02 16:55 | Infectious Disease Consult ---
Date of Encounter: 06/02/18 Time of Encounter: 16:49 Assessment and Plan (1) Pneumonia Status: Acute Assessment and plan: Location: Multifocal. Causative organism unclear. Based on CT findings, this does not appear to be a typical bacterial infection. Not sure if this is atypical. TB is less likely as the patient denies known exposure and has never been incarcerated. Concern for aspiration based on CT scan findings, but the patient denies any loss of consciousness related to her IV drug use. CTA of the chest was negative for PE, but did show diffuse airway inflammation with tracheobronchial secretions and multifocal ground-glass opacities/ consolidative opacities. Differential considerations include aspiration vs. septic emboli vs. pulmonary infarcts (less likely). Low index of suspicion for septic emboli or typical bacterial pneumonia. S. pneumo and Legionella UATs. --> negative. MRSA nasal screen. --> Negative. Check RIP. --> negative. Blood cultures drawn sets and sets are all negative. Quantiferon was negative. Discontinue Zosyn and Zyvox. Start Levaquin 750mg IV daily. Duration of treatment depends on the clinical picture, but likely a total of 10 days of treatment. Can switch to PO Levaquin when ready for discharge to complete course of treatment. Monitor renal function and for drug toxicity and dose-adjust antibiotics. Qualifiers: Pneumonia type: due to unspecified organism Laterality: bilateral Lung location: unspecified part of lung Qualified Code(s): J18.9 - Pneumonia, unspecified organism (2) Wheezing Status: Acute Assessment and plan: Not sure if the patient has underlying asthma or other chronic pulmonary issue. Recommend albuterol nebs/inhalers on discharge. Recommend pulmonology follow-up as an outpatient. (3) Dyspnea Status: Acute Assessment and plan: Likely secondary to PNA. Appears improved. Management per the primary team. Qualifiers: Dyspnea type: shortness of breath Qualified Code(s): R06.02 - Shortness of breath; R06.00 - Dyspnea, unspecified; R06.01 - Orthopnea (4) IVDU (intravenous drug user) Status: Chronic Assessment and plan: Reports IV heroine use 2x since leaving the hospital. Denies history of chronic infectious diseases. Check HIV status. --> nonreactive. Check Hepatitis profile. --> nonreactive. Infectious Disease HPI - Data of Consult Patient: known to practice within the last 3 years Consult date: 06/02/18 Requesting Physician: Louann Boone MD Primary Care Provider: PCP NONE Family Provider: Azam Henderson MD - Consult Narrative Reason for consult: Pneumonia History of present illness: Ms. Prieto is a 23 year old female with a past medical history IV drug use. The patient was admitted to the hospital June 01 for pneumonia. We are consulted June 02 for further antibiotic recommendations for pneumonia. Briefly, the patient is a 23-year-old female, well-known to the infectious disease services we are consulted on her case during her recent hospitalization. At that time, the patient had a CT scan of the chest that showed diffuse airway inflammation with tracheobronchial secretions and multifocal groundglass/consolidative opacities concerning for aspiration sequela and septic emboli given the patient's history of IV drug use. She received IV antibiotics in the emergency department and developed what sounds like anaphylaxis after receiving a dose of IV vancomycin. She was hospitalized in the intensive care unit overnight and her symptoms resolved. She was transferred to [facility] and while awaiting further workup she signed out AMA. She came back to the emergency department on and again signed out AMA. At that time, she was given a prescription for oral antibiotics, but did not take them. She came back to the emergency room yesterday with complaints of worsening shortness of breath. Upon arrival, she was tachycardic, but was otherwise hemodynamically stable. Laboratory studies revealed a normal white blood cell count with normal kidney function. Urinalysis was contaminated. Blood cultures were obtained 2 sets are pending. She had a chest x-ray that showed improved right lower lobe airspace disease. She was started on IV Zosyn and Zyvox and admitted to the hospital for further evaluation. Since admission, the patient has remained afebrile hemodynamically stable. She does have intermittent episodes of tachycardia, but nothing sustained. During her previous hospitalization, urinary antigen tests were negative. Hepatitis profile and HIV were nonreactive. Her MRSA screen was negative as well. Blood cultures obtained sets and sets are all negative. Currently , the patient is on Zosyn and Zyvox. We have been asked to evaluate and make further recommendations. During my exam today, the patient endorses a history as stated above. At this time, she states she feels 100% better. She states she was short of breath yesterday with a dry nonproductive cough, but her symptoms seemed to have improved. She denies any fevers or chills or rigors. Denies any headache or neck pain. Denies any weakness, dizziness, or focal neurologic deficits. She denies any congestion, earache, or sore throat. She reports pain in her chest with deep inspiration or cough. She denies any hemoptysis night sweats or weight loss. She denies abdominal pain, urinary complaints, or appetite changes. She denies any nausea, vomiting, diarrhea, or constipation. She denies any back, flank, or extremity pain. She denies any oral thrush or new skin lesions. She does admit to using heroin 2 times since leaving the hospital. CC: Louann Boone MD Past Med Surg Social Fam HX - Past Medical History Attestation: Yes The following information was validated with the patient. Medical history: no medical history Psychiatric history: no psych history - Past Surgical History Surgical History: no surgical history - Social History Smoking Status: Current every day smoker Packs per day: 1 Smokeless Tobacco Status: No Alcohol use: none Drug use: marijuana, methamphetamine, IV Drug Use Occupational status: unemployed Current living situation: Home - Independent Activity Level: Independent ambulation Recent Out of Country Travel Within the Last 8 Weeks: No Exposure or Possible Exposure to Illness During Travel: No - Family History Mother Hx Family Cancer: Yes Father Living Status: Still Living Hx Family Cardiac Disorders: Yes Infectious Disease-CN:Meds No Known Home Drugs 06/01/18 [History] 3 Allergy/AdvReac Type Severity Reaction Status Date / Time vancomycin Allergy Anaphylaxis Verified 05/27/18 17:25 All systems: reviewed and no additional remarkable complaints except as stated Exam - Constitutional Vitals: Temp Pulse Resp BP Pulse Ox 97.7 F 104 18 101/66 98 06/02/18 04:20 06/02/18 15:40 06/02/18 15:40 06/02/18 15:40 06/02/18 15:40 General appearance: average body habitus, cooperative, no acute distress - Head Head exam: Present: atraumatic, normal inspection, normocephalic - Eye Eye exam: Present: EOMI, normal appearance, PERRL Pupils: Present: normal accommodation - ENT ENT exam: Present: mucous membranes moist - Neck Neck exam: Present: normal inspection - Respiratory Respiratory exam: Present: wheezes (Coarse inspiratory and expiratory wheezes throughout.). Absent: CTAB, rales, respiratory distress, rhonchi - Cardiovascular Cardiovascular exam: Present: +S1, +S2, tachycardia. Absent: irregular rhythm - GI/Abdominal GI/Abdominal exam: Present: normal bowel sounds, soft. Absent: distended, tenderness - Extremities Exam Extremities exam: Present: normal inspection. Absent: joint swelling, pedal edema, tenderness - Back Exam Back exam: Present: normal inspection. Absent: paraspinal tenderness, vertebral tenderness - Neurological Exam Neurological exam: Present: alert, oriented X3, no focal deficits - Psychiatric Psychiatric exam: Present: normal affect, normal mood - Skin Skin exam: Present: dry, intact, normal color, warm Infectious Disease CN: Results - Labs CBC & Chem 7: 06/02/18 05:41 06/02/18 05:41 Consult Discharge Plan - Plan Referrals: Azam Henderson MD [Family Provider] - - Attending Attestation I examined this patient and my medical decision-making was reviewed with the Resident Physician. I agree with the documented findings, disposition and treatment plan as described except to the extent set forth below. This is an addendum to original report dictated by Tanisha Bauman CNP. Please refer to Tanisha's note for full detail. Patient is a 3-year-old woman known to our service was recently seen by us in patient and decided to sign out AMA for atypical pneumonia presentation. Patient was checked for HIV and hepatitis. Both of which came back negative. Patient was high-risk behavior. With IV drug use. All workup at that time was negative and multiple blood cultures were obtained were negative. There was also concern for septic emboli middle fingers for was. Patient continues to have some shortness of breath pleuritic chest pain should said it has come back to the emergency department for evaluation and was admitted. Clinically she still having significant wheezing but her breathing has significantly improved. Rest infectious panel in her urine legionella and pneumococcal antigen and all the workup has been negative so far. At this point in 2 Levofloxacin and inhaled albuterol and Symbicort. If her symptoms do not improve patient might need a bronchoscopy. Patient also advised to quit smoking. Duration of treatment 10 days
[2018-06-02] MEDS ORDERED: Levofloxacin 750 MG/150 ML 750 MG/150 ML BAG IVPB SCH (17:00)
--- NOTE | 2018-06-02 19:49 | Event Note ---
Date of Encounter: 06/02/18 Time of Encounter: 19:[address] Boone to see patient as she is requesting to sign out AMA, requested to send with Levaquin and albuterol inhaler if patient not agreeable to stay. Informed patient she is not ready for discharge and leaving AMA could result in adverse medical outcomes including . Patient verbalizes understanding and is still requesting to leave as she states she wants to see her son. Patient signed AMA paperwork and nurse has attached to her chart. Written script for PO Levaquin 750mg daily for 10 days and PRN albuterol sulfate inhaler provided to patient.
--- NOTE | 2018-06-03 15:41 | Discharge Summary ---
Date of Encounter: 06/02/18 Time of Encounter: 10:00 - Discharge Diagnosis (1) Pneumonia Priority: Primary Status: Acute Qualifiers: Pneumonia type: due to unspecified organism Laterality: bilateral Lung location: unspecified part of lung Qualified Code(s): J18.9 - Pneumonia, unspecified organism (2) Septic embolism Priority: Primary Status: Suspected (3) IVDU (intravenous drug user) Priority: Secondary Status: Chronic Hospital course: Ms. Prieto is a 23 year old female with history of polysubstance abuse including IV heroine, has been recently admitted with chest pain and shortness of breath, started on treatment for bilateral pneumonia and septic emboli. Patient has left AGAINST MEDICAL ADVICE twice in the recent past. All blood cultures so far during her multiple visits have been negative. Urine legionella and strep pneumoniae antigen, nasal MRSA screen, respiratory infection panel have all been negative during recent admission. Transthoracic echocardiogram was technically difficult, no identifiable valvular vegetations. She was started on IV Zyvox and Zosyn during this admission. Infectious diseases was consulted, patient has been transitioned to IV Levaquin. However, she decided to leave AGAINST MEDICAL ADVICE, did receive prescriptions for oral antibiotics and when necessary albuterol inhaler from the calibration checker hospitalist. - Time Spent with Patient Total time spent providing and/or coordinating discharge services: Less than 30 minutes - Discharge Medications Home Medications: No Known Home Drugs 06/01/18 [History] Allergies/Adverse Reactions: 3 Allergy/AdvReac Type Severity Reaction Status Date / Time vancomycin Allergy Anaphylaxis Verified 05/27/18 17:25 Date of admission: 06/01/18 09:12 Primary care physician: PCP NONE Anticipated date of discharge: 06/02/18 - Constitutional Vitals: Temp Pulse Resp BP Pulse Ox 97.7 F 104 16 101/66 99 06/02/18 04:20 06/02/18 15:40 06/02/18 16:52 06/02/18 15:40 06/02/18 16:52 Exam: . - Patient Status Disposition: Left Against Medical Advice Condition: Fair - Discharge Instructions Instructions: Sepsis (DC), Pneumonia (DC) Follow Up With: Azam Henderson MD [Family Provider] -
--- NOTE | 2018-06-03 22:50 | Electrocardiograph Report ---
[place] [address] Test Date: 2018-06-01 Pat Name: Nadine Prieto Department: [id number] Room: [id number] Gender: F [employer] Manager: : [id number] Requested By: Bry Isaacs Order Number: [id number] Reading MD: José Renteria Measurements Intervals [place] Rate: 71 P: 42 FL: 109 QRS: 73 QRSD: 78 T: 65 QT: 382 QTc: 416 Interpretive Statements Sinus rhythm Short FL interval Electronically Signed On 06-03-2018 22:48:22 EDT by José Renteria
== END 2018-06-02 20:53 | disposition left against medical advice (07) | DRG 139 ==
LOC: EMEROOARM → 2NENU → SUATTDRO 09:12
PROVIDERS: ADMIT Internal Medicine; ATTEND Internal Medicine